=== PATIENT | female | born 1940 | race Caucasian/White ===

== ENCOUNTER 2017-08-24 07:53 | Inpatient (IN) ==
[2017-08-24] MEDS ORDERED: *HR* Metoprolol 5 MG/5 ML VIAL IVP PRN (12:33)
--- NOTE | 2017-08-24 12:33 | General Surg History&Physical ---
<Vikki Wadsworth - Last Filed: 08/24/17 12:27> Date of Encounter: 08/24/17 Time of Encounter: 10:45 Assessment and Plan (1) Small bowel obstruction Current Visit: No Status: Acute N/V, no BM/flatus x 3 days, and diffuse abdominal pain. Vitals have been within normal limits. WBC elevated to 38.3. Abdomen is soft, with mild tenderness and no distension. Lymphocytes 34.5 and smudge cells present on smear. Lactic acid 4.1. CT scan showed "moderate mid small bowel obstruction suspected to be due to adhesion. Fecal like material within the small bowel suggests at least a chronic partial obstruction". NG has been placed and patient is NPO. Plan: - NG tube to suction - Diet: NPO - serial abdominal exam - Can ambulate with assistance TID (2) Diabetes mellitus Current Visit: No Status: Acute D/c Metformin while NPO and placed on accu checks with low slide scale. Qualifiers: Diabetes mellitus type: type 2 Diabetes mellitus complication status: without complication Diabetes mellitus mcc insulin use: without terminal gauger use Qualified Code(s): E11.9 - Type 2 diabetes mellitus without complications (3) HTN (hypertension) Current Visit: No Status: Acute D/c home medications for now while NPO as they are PO. Will start Lopressor 5mg Q6 hr prn. Qualifiers: Hypertension type: essential hypertension Qualified Code(s): I10 - Essential (primary) hypertension (4) Left ovarian cyst Current Visit: No Status: Acute CT scan showed 8.2cm L ovarian cyst as an incidental finding. Will order the recommended US. (5) DVT prophylaxis Current Visit: No Status: Acute mechanical IPC. Also ambulation TID. History of Present Illness Chief complaint: N/v, no BM for 3 days, and abdominal pain HPI: Ms. Bello is a 77 year old female with a chief complaint of nausea, vomiting and no bowel movement for 3 days. Patient typically has a BM 1-2 times per day but has not had one for 3 days, nor has had any flatus. Stools prior to this had no change in color and has never seen any blood. Associated abdominal pain that is diffuse. Patient states that she has not been febrile. She has not been able to keep food down but has been hydrating well with no urinary complaints. Patient has not previously had this problem. She has never had a colonoscopy due to not wanting one. Pmh of diabetes non-insulin dependent, only on metformin. No diabetic neuropathy. Past surgical history of open cholecystectomy and hysterectomy in 1969 patient. Past Med Surg Social Fam HX - Past Medical History Medical history: arthritis, diabetes, hypertension, other Psychiatric history: no psych history - Past Surgical History Surgical History: cholecystectomy, hysterectomy - Social History Smoking Status: Never smoker Smokeless Tobacco Status: No Alcohol use: none Drug use: none - Family History Mother Living Status: Father Living Status: Medications and Allergies Acetaminophen [Tylenol Arthritis] 500 mg PO QID PRN 02/03/17 [History] Allopurinol [Zyloprim] 300 mg PO DAILY 02/03/17 [History] Atorvastatin [Lipitor] 10 mg PO HS 02/03/17 [History] [place] Cit/Mag/D3/Zn/Casing In Line Setter/Nikhil/Bor [Citracal-Vit D + Magnesium Tab] 1 each PO DAILY 02/03/17 [History] [place]-3/Dha/Epa/Fish Oil [Fish Oil 1,000 mg Softgel] 1,200 mg PO DAILY 02/03/17 [History] metFORMIN [Glucophage] 500 mg PO BIDWM 02/03/17 [History] Amlodipine Besylate/Benazepril [Lotrel 5-40 mg Capsule] 1 cap PO DAILY 08/24/17 [History] Aspirin [Lo-Dose Aspirin EC] 81 mg PO DAILY 08/24/17 [History] Vit A/C/E AC/Znox/Cupric Oxide [Eye Vitamin-Minerals Tablet] 1 each PO DAILY 06/03 [History] 3 Allergy/AdvReac Type Severity Reaction Status Date / Time No Known Allergies Allergy Verified 02/03/17 08:33 Review of Systems All systems PM: A 10-system review of systems was performed and is negative for pertinent findings except as documented above in the HPI. - Constitutional as per HPI General Surgery Exam Initial Vital Signs Temp Pulse Resp BP Pulse Ox 97.9 F 109 20 109/57 93 08/24/17 10:11 08/24/17 10:11 08/24/17 10:11 08/24/17 10:11 08/24/17 10:11 - Additional Findings Constitutional: Alert, in no acute distress, well nourished, well developed. Head: Normocephalic, atraumatic, normal contour and symmetric, no masses, lesions or scars Heart: Normal, regular rate and rhythm, no murmurs Lungs: Clear to auscultation, no wheezes, rales, or rhonchi Abdomen: mild diffuse tenderness, Soft, nondistended and no masses palpable, bowel sounds present but hypoactive, no guarding or rigidity. Extremities: No clubbing, cyanosis, or edema, radial pulse +2/4, capillary refill <2sec. Skin: Skin warm and dry, no lesions, no rashes, no jaundice Neurologic: Cranial nerves II through XII grossly intact, no focal deficits, strength within normal limits in all extremities Psych: Cooperative with exam, good eye contact, cognitive function intact, judgment good insight good, speech clear, thought process logical, and goal directed Results - Labs Abnormal lab results POC Glucose 156 (58-89) H 08/24/17 09:33 All other labs normal. - Imaging CT scan - abdomen: report reviewed, image reviewed <Darrion Ortiz - Last Filed: 08/24/17 13:09> Date of Encounter: 08/24/17 Assessment and Plan (1) Small bowel obstruction Current Visit: Yes Status: Acute The assessment and plan as outlined above was discussed with the patient and/or family members who expressed understanding and agreement. All questions were answered. (2) DVT prophylaxis Current Visit: Yes Status: Acute The assessment and plan as outlined above was discussed with the patient and/or family members who expressed understanding and agreement. All questions were answered. (3) Diabetes mellitus Current Visit: Yes Status: Acute The assessment and plan as outlined above was discussed with the patient and/or family members who expressed understanding and agreement. All questions were answered. Qualifiers: Diabetes mellitus type: type 2 Diabetes mellitus complication status: with other specified complication Diabetes mellitus mcc insulin use: without terminal gauger use Qualified Code(s): E11.69 - Type 2 diabetes mellitus with other specified complication (4) HTN (hypertension) Current Visit: Yes Status: Acute The assessment and plan as outlined above was discussed with the patient and/or family members who expressed understanding and agreement. All questions were answered. Qualifiers: Hypertension type: essential hypertension Qualified Code(s): I10 - Essential (primary) hypertension (5) Left ovarian cyst Current Visit: Yes Status: Acute The assessment and plan as outlined above was discussed with the patient and/or family members who expressed understanding and agreement. All questions were answered. History of Present Illness HPI: Ms. Bello is a 77 year old female Review of Systems All systems PM: A 10-system review of systems was performed and is negative for pertinent findings except as documented above in the HPI. General Surgery Exam Initial Vital Signs Temp Pulse Resp BP Pulse Ox 97.9 F 109 20 109/57 93 08/24/17 10:11 08/24/17 10:11 08/24/17 10:11 08/24/17 10:11 08/24/17 10:11 Results - Labs Abnormal lab results POC Glucose 156 (58-89) H 08/24/17 09:33 All other labs normal. - Attending Attestation I have personally seen and examined the patient. I have reviewed pertinent labs , imaging, progress notes, including this one. I agree with the above assessment and plan and wish to include the following... please see MD consult note.
[2017-08-24] MEDS ORDERED: D5% in Lactated Ringers 1,000 ML IVC ONE (12:41)
--- NOTE | 2017-08-24 12:51 | General Surg History&Physical ---
Date of Encounter: 08/24/17 Time of Encounter: 12:45 Assessment and Plan (1) Small bowel obstruction Current Visit: Yes Status: Acute 77F with h/o DM prior hysterectomy and open cholecystectomy who presents with small bowel obstruction confirmed on CT scan; non septic - NPO -IVF: bolus and maintenance - DVT prophylaxis: SQH in light of DACIA - NG tube: cont to LIWS - activity as tolerated - f/u 1800 labs, replete lytes PRN The assessment and plan as outlined above was discussed with the patient and/or family members who expressed understanding and agreement. All questions were answered. (2) DVT prophylaxis Current Visit: Yes Status: Acute SQH in light of DACIA; The assessment and plan as outlined above was discussed with the patient and/or family members who expressed understanding and agreement. All questions were answered. (3) Diabetes mellitus Current Visit: Yes Status: Acute ISS sliding scale for glucose control; monitor q6hrs The assessment and plan as outlined above was discussed with the patient and/or family members who expressed understanding and agreement. All questions were answered. Qualifiers: Diabetes mellitus type: type 2 Diabetes mellitus complication status: with other specified complication Diabetes mellitus half-way insulin use: without half-way use Qualified Code(s): E11.69 - Type 2 diabetes mellitus with other specified complication (4) HTN (hypertension) Current Visit: Yes Status: Acute lopressor 5mg iv q6; hold for SBP <100, HR <60; give for SBP >150 The assessment and plan as outlined above was discussed with the patient and/or family members who expressed understanding and agreement. All questions were answered. Qualifiers: Hypertension type: essential hypertension Qualified Code(s): I10 - Essential (primary) hypertension (5) Left ovarian cyst Current Visit: Yes Status: Acute US to evaluate; will obtain education and development manager consult pending results The assessment and plan as outlined above was discussed with the patient and/or family members who expressed understanding and agreement. All questions were answered. History of Present Illness Chief complaint: vomiting, constipation and obstipation HPI: Ms. Bello is a 77 year old female with a PMH significant for DM, uterine cancer s/p open hysterectomy and h/o open cholecystectomy who presents with 3 days of worsening abdominal distension, PO intolerance, nausea, vomiting and constipation and obstipation. This is the first time she has had symptoms like this. The patient has not been able to reliably eat for 3 days. No associated fevers, chills or abdominal pain. She presented to an outside facility where a CT was ordered. I have reviewed and interpreted the CT scan personally. It is consistent with a SBO with transition point likely in mid right abdomen. No evidence of ischemia. An NG tube was placed and bilious drainage was seen. She was subsequently transferred to [facility] for further management. Past Med Surg Social Fam HX - Past Medical History Medical history: arthritis, diabetes, hypertension, other Psychiatric history: no psych history - Past Surgical History Surgical History: cholecystectomy, hysterectomy - Social History Smoking Status: Never smoker Smokeless Tobacco Status: No Alcohol use: none Drug use: none - Family History Mother Living Status: Father Living Status: Medications and Allergies Acetaminophen [Tylenol Arthritis] 500 mg PO QID PRN 02/03/17 [History] Allopurinol [Zyloprim] 300 mg PO DAILY 02/03/17 [History] Atorvastatin [Lipitor] 10 mg PO HS 02/03/17 [History] [place] Cit/Mag/D3/Zn/Food And Beverage Cashier/Nikhil/Bor [Citracal-Vit D + Magnesium Tab] 1 each PO DAILY 02/03/17 [History] [place]-3/Dha/Epa/Fish Oil [Fish Oil 1,000 mg Softgel] 1,200 mg PO DAILY 02/03/17 [History] metFORMIN [Glucophage] 500 mg PO BIDWM 02/03/17 [History] Amlodipine Besylate/Benazepril [Lotrel 5-40 mg Capsule] 1 cap PO DAILY 08/24/17 [History] Aspirin [Lo-Dose Aspirin EC] 81 mg PO DAILY 08/24/17 [History] Vit A/C/E AC/Znox/Cupric Oxide [Eye Vitamin-Minerals Tablet] 1 each PO DAILY 06/03 [History] 3 Allergy/AdvReac Type Severity Reaction Status Date / Time No Known Allergies Allergy Verified 02/03/17 08:33 Review of Systems All systems PM: A 10-system review of systems was performed and is negative for pertinent findings except as documented above in the HPI. General Surgery Exam Initial Vital Signs Temp Pulse Resp BP Pulse Ox 97.9 F 109 20 109/57 93 08/24/17 10:11 08/24/17 10:11 08/24/17 10:11 08/24/17 10:11 08/24/17 10:11 - General physical appearance well developed, well nourished, no distress - Eyes other (no slceral icterus) - ENT atraumatic, normocephalic - Neck no lymphadectomy - Respiratory normal expansion, normal respiratory effort, clear to auscultation - Cardiovascular Cardiovascular exam: Present: RRR - Abdomen Abdomen general surgery: Present: soft, non tender, tympanic, distended Hernia: Present: none - Integumentary Integumentary general surgery: Present: warm and dry - Neurologic Present: CN 2-12 grossly intact - Musculoskeletal Present: other (no gross deformities) - Psychiatric Psychiatric general surgery: Present: A&Ox3 Results - Labs Abnormal lab results POC Glucose 156 (58-89) H 08/24/17 09:33 All other labs normal. pertinent labs: WBC; 38 Cr: 3.0 Lactate: 4.0 - Imaging CT scan - abdomen: report reviewed, image reviewed CT scan - pelvis: report reviewed, image reviewed ((+)obstruction, no ischemia; no abscess, no pneumatosis)
[2017-08-24] MEDS: *HR* Heparin 5,000 UNIT/ML VIAL SQ SCH ×2 (13:19→20:58)
[2017-08-24] MEDS: D5% in Lactated Ringers 1,000 ML IVC SCH (13:22)
[2017-08-24] MEDS ORDERED: D5% in Water 1,000 ML IVC PRN (15:31)
[2017-08-24] MEDS ORDERED: *HR* Dextrose 50 % in Water (Syg) 50 ML SYRINGE IVP PRN (15:31)
[2017-08-24] MEDS ORDERED: Dextrose Gel 15 GM PO PRN ×2 (15:31)
[2017-08-24] MEDS: Insulin LISPRO 300 UNITS/3 ML VIAL SQ SCH (18:06)
[2017-08-24 18:27] LABS: Basophils % 0.2 %; Eosinophils % 0.2 %; Hemoglobin 11.6 g/dL (11.5-15.4); Immature Granulocytes % 0.2 % (0-4); Lymphocytes # 15.1 K/mcL (0.6-4.6); Lymphocytes % 71.6 %; Mean Corpuscular HGB Conc 32.2 g/dL (31.6-35.5); Mean Corpuscular Hemoglobin 28.7 pg (28.0-33.3); Mean Corpuscular Volume 89.1 fL (83.0-100.0); Mean Platelet Volume 10.3 fL (9.4-12.4); Monocytes # 1.4 K/mcL (0.0-1.3); Monocytes % 6.6 %; Neutrophils # 4.5 K/mcL (1.6-8.9); Platelet Count 243 K/mcL (140-400); Red Blood Count 4.04 M/mcL (3.82-4.97); Red Cell Distribution Width 14.5 % (11.5-14.5); Segmented Neutrophils % 21.2 %
[2017-08-24 18:38] LABS: Calcium 10.2 mg/dL (8.6-10.8); Magnesium 1.3 mg/dL (1.6-2.6); Phosphorous 3.9 mg/dL (2.3-4.7); Potassium 3.8 mEq/L (3.5-4.5)
[2017-08-24 19:06] LABS: Platelet Estimate Normal (Normal)
[2017-08-24] MEDS: Magnesium Sulfate 2 GM in D5% in Water 100 ML IVPB SCH ×2 (20:57→22:11)
[2017-08-25] MEDS: Insulin LISPRO 300 UNITS/3 ML VIAL SQ SCH ×4 (00:14→17:52)
[2017-08-25] MEDS: D5% in Lactated Ringers 1,000 ML IVC SCH ×3 (00:14→22:08)
[2017-08-25 04:36] LABS: Basophils % 0.1 %; Eosinophils # 0.1 K/mcL (0.0-0.6); Eosinophils % 0.5 %; Hematocrit 34.5 % (35.3-44.9); Hemoglobin 11.2 g/dL (11.5-15.4); Immature Granulocytes % 0.2 % (0-4); Lymphocytes % 65.5 %; Mean Corpuscular HGB Conc 32.5 g/dL (31.6-35.5); Mean Corpuscular Hemoglobin 29.8 pg (28.0-33.3); Mean Corpuscular Volume 91.8 fL (83.0-100.0); Mean Platelet Volume 11.2 fL (9.4-12.4); Monocytes # 1.1 K/mcL (0.0-1.3); Monocytes % 7.1 %; Platelet Count 196 K/mcL (140-400); Red Blood Count 3.76 M/mcL (3.82-4.97); Red Cell Distribution Width 14.6 % (11.5-14.5); Segmented Neutrophils % 26.6 %
[2017-08-25 05:35] LABS: Large Platelets Present (Not Present); Platelet Estimate Normal (Normal)
[2017-08-25] MEDS: *HR* Heparin 5,000 UNIT/ML VIAL SQ SCH ×3 (05:43→22:08)
[2017-08-25 11:19] LABS: Calcium 10.1 mg/dL (8.6-10.8); Magnesium 1.9 mg/dL (1.6-2.6); Phosphorous 2.9 mg/dL (2.3-4.7); Potassium 3.7 mEq/L (3.5-4.5)
--- NOTE | 2017-08-25 11:55 | General Surgery Progress Note ---
Date of Encounter: 08/25/17 Time of Encounter: 11:55 - Assessment and Plan (1) Small bowel obstruction Current Visit: Yes Status: Inactive 77F with prior abdominal surgeries who presents with sbo likely due to adhesive disease; currently rehydrated and having return of bowel function; still with high NG output - NPO - IVF: decrease to 75cc/hr - encourage ambulation - still with NG output of about 100cc/hr as of this morning; will cont with NG tube - replete lytes - limit narcotics - no antibiotics at presents: despite leukocytosis, WBC decreased with rehydration, the patient is afebrile with a benign abdomen and no evidence of ischemia on CT (2) DVT prophylaxis Current Visit: Yes Status: Acute cont with SQH (3) Diabetes mellitus Current Visit: Yes Status: Acute change ISS to moderate scale; goal of 150s for glucose Qualifiers: Diabetes mellitus type: type 2 Diabetes mellitus complication status: with other specified complication Diabetes mellitus superintendent terminal insulin use: without superintendent terminal use Qualified Code(s): E11.69 - Type 2 diabetes mellitus with other specified complication (4) HTN (hypertension) Current Visit: Yes Status: Acute cont with lopressor with current parameters Qualifiers: Hypertension type: essential hypertension Qualified Code(s): I10 - Essential (primary) hypertension (5) Left ovarian cyst Current Visit: Yes Status: Acute US to evaluate ovarian cyst Subjective Patient reports: no new complaints, feels better (no acute events overnight; oxygen saturations dec to high 80s off oxygen), flatus, no bowel movement Objective Vital Signs - Last 8 Hours Temp Pulse Resp BP Pulse Ox 08/25/17 10:52 97.5 F L 98 18 111/65 93 08/25/17 07:30 97.9 F 102 16 120/64 93 08/25/17 04:17 97.3 F L 105 15 113/62 92 Intake and Output 08/24/17 08/25/17 08/25/17 23:59 07:59 15:59 Intake Total 1208 / 1208 0 / 0 1000 / 1000 Output Total 300 / 300 1100 / 1100 200 / 200 Balance 908 / 908 -1100 / -1100 800 / 800 Intake: IV Fluids 1208 / 1208 1000 / 1000 D5% & Lact. Ringers 1000 Ml Bag 1000 / 1000 1000 / 1000 1,000 ML @ 100 mls/hr IVC . Q10H MIKAL Rx#:[id number] Magnesium Sulfate 2 GM In 208 / 208 Dextrose 5% 100 ML @ 96.296 mls /hr IVPB Q1H MIKAL Rx#:[id number] Oral 0 / 0 0 / 0 Output: Urine 300 / 300 200 / 200 200 / 200 Gastric Drainage 900 / 900 Other: Meal npo Weight 83.9 kg Blood Glucose* 201 194 Patient Weight 08/25/17 23:59 Weight 83.9 kg - General physical appearance well developed, well nourished - Respiratory normal expansion, normal respiratory effort - Cardiovascular Cardiovascular exam: Present: RRR - Abdomen Abdomen: Present: soft (minimally distended, improved compared to yesterday), non tender Hernia: none - Neurologic CN 2-12 grossly intact - Psychiatric oriented to time - Labs 08/25/17 03:44 08/25/17 10:49 Diabetes panel 08/24/17 08/25/17 Range/Units 18:18 10:49 Sodium 140 143 (136-145) mEq/L Potassium 3.8 3.7 (3.5-4.5) mEq/L Chloride 101 100 (98-109) mEq/L Carbon Dioxide 28 32 H (19-29) mEq/L BUN 40 H 32 H (7-20) mg/dL Creatinine 1.83 H 1.34 H (0.57-1.11) mg/dL Glucose 166 H 171 H (70-99) mg/dL Calcium 10.2 10.1 (8.6-10.8) mg/dL Calcium panel 08/24/17 08/25/17 08/25/17 Range/Units 18:18 10:49 10:49 Calcium 10.2 10.1 (8.6-10.8) mg/dL Phosphorus 3.9 2.9 (2.3-4.7) mg/dL Pituitary panel 08/24/17 08/25/17 Range/Units 18:18 10:49 Sodium 140 143 (136-145) mEq/L Potassium 3.8 3.7 (3.5-4.5) mEq/L Chloride 101 100 (98-109) mEq/L Carbon Dioxide 28 32 H (19-29) mEq/L BUN 40 H 32 H (7-20) mg/dL Creatinine 1.83 H 1.34 H (0.57-1.11) mg/dL Glucose 166 H 171 H (70-99) mg/dL Calcium 10.2 10.1 (8.6-10.8) mg/dL Adrenal panel 08/24/17 08/25/17 Range/Units 18:18 10:49 Sodium 140 143 (136-145) mEq/L Potassium 3.8 3.7 (3.5-4.5) mEq/L Chloride 101 100 (98-109) mEq/L Carbon Dioxide 28 32 H (19-29) mEq/L BUN 40 H 32 H (7-20) mg/dL Creatinine 1.83 H 1.34 H (0.57-1.11) mg/dL Glucose 166 H 171 H (70-99) mg/dL Calcium 10.2 10.1 (8.6-10.8) mg/dL - Imaging Chest x-ray: report reviewed, image reviewed (no effusion; no cardiomegaly; NG tube in appropriate place) Abdominal x-ray: report reviewed, image reviewed - VTE Documentation of Mechanical Device: Intermittent pneumatic compression device Consult Discharge Plan - Plan Referrals: Jose Miguel Sanabria MD [Primary Care Provider] -
--- NOTE | 2017-08-25 16:35 | OB/GYN Consult Note ---
Date of Encounter: 08/25/17 Time of Encounter: 16:14 Assessment and Plan (1) Left ovarian cyst Current Visit: Yes Status: Acute 8.2cm Left ovarian cyst found incidentally on abd CT. Pelvic US confirms cystic nodule in left adnexa suspicious for cystic ovarian neoplasm given pt age until proven otherwise measuring 7.4 x 5.7 x 6.3 cm. Pt has history of cervical cancer with hysterectomy in 1968 and CLL. Patient denies any pelvic pain or symptoms prior to acute SBO symptoms. I discussed that there is the potential that this could be a malignancy. She states "Well I am 78, I don't want surgery." Patient not currently amendable to invasive testing. Discussed that she could see the LIABILITY CLAIMS MANAGER as an outpatient and discuss testing and options further once she is feeling better. She is agreeable to this. Recommendations: -Will get CA-125 with AM labs -Recommend outpatient referral to LIABILITY CLAIMS MANAGER for further discussion and evaluation Discussed patient and plan with attending, Dr. Arzate, who is agrees with plan and recommendations. (2) History of cervical cancer Current Visit: Yes Status: Chronic s/p hysterectomy in 1968. History of Present Illness Consult date: 08/25/17 Requesting physician: Darrion Ortiz Reason for consult: ovarian cyst Chief complaint: SBO History of present illness: Ms. Bello is a 77 year old female with a PMH of CLL, Cervical Cancer, DM, HTN , HLD and gout who presented to [facility] from [place] [facility] complaining of nausea, vomiting and no BM x3 days on 08/24/17. She had leukocytosis at 38.3, lymphyocytes 15.1 and a lactic acid of 4.1. An Abdominal CT was performed which indicated SBO and also incidentally found a 8.2cm simple appearing left ovarian cyst. A pelvic US was obtained showed a large cystic nodule in the left adnexa, suspicious for cystic ovarian neoplasm, given the patient's age, until proven otherwise and a normal right ovary. General surgery has been managing her SBO and consulted COMBATANT DIVER QUALIFIED regarding the left ovarian cyst as he is concerned for neoplasm. The patient states prior to her acute abdominal pain she was not experiencing abdominal or pelvic pain. She does have a history of cervical cancer and had a hysterectomy in 1968. She denies history of breast cancer. She denies a family history of breast, cervical or ovarian cancer that she knows of. Her mother did have colon cancer and her sister had a cancer, but she can not remember which type. She denies F/C, CP, SOB, dysuria. Past Med Surg Social Fam HX - Past Medical History Medical history: arthritis, cancer (cervical, CLL), diabetes, hypertension, other Psychiatric history: no psych history - Past Surgical History Surgical History: cholecystectomy, hysterectomy (1968) - Social History Smoking Status: Never smoker Smokeless Tobacco Status: No Alcohol use: none Drug use: none - Family History Mother Living Status: Hx Family Cancer: Yes (colon cancer) Father Living Status: Medications and Allergies Acetaminophen [Tylenol Arthritis] 500 mg PO QID PRN 02/03/17 [History] Allopurinol [Zyloprim] 300 mg PO DAILY 02/03/17 [History] Atorvastatin [Lipitor] 10 mg PO HS 02/03/17 [History] [place] Cit/Mag/D3/Zn/Manager Clinical Informatics/Nikhil/Bor [Citracal-Vit D + Magnesium Tab] 1 each PO DAILY 02/03/17 [History] [place]-3/Dha/Epa/Fish Oil [Fish Oil 1,000 mg Softgel] 1,200 mg PO DAILY 02/03/17 [History] metFORMIN [Glucophage] 500 mg PO BIDWM 02/03/17 [History] Amlodipine Besylate/Benazepril [Lotrel 5-40 mg Capsule] 1 cap PO DAILY 08/24/17 [History] Aspirin [Lo-Dose Aspirin EC] 81 mg PO DAILY 08/24/17 [History] Vit A/C/E AC/Znox/Cupric Oxide [Eye Vitamin-Minerals Tablet] 1 each PO DAILY 06/03 [History] 3 Allergy/AdvReac Type Severity Reaction Status Date / Time No Known Allergies Allergy Verified 02/03/17 08:33 Review of Systems Constitutional: no chills, no fatigue, no fever(s), no malaise, no weight loss Nose, mouth and throat: no dizziness Cardiovascular: no chest pain, no irregular heart rhythm Respiratory: no dyspnea Gastrointestinal: abdominal pain, bloating, change in bowel habits, coffee ground emesis, constipation, nausea Genitourinary Female: no abnormal vaginal bleeding, no dysuria, no flank pain, no pelvic pain Menstruation: post hysterectomy Exam - Vital Signs Vital signs: Initial Vital Signs Temp Pulse Resp BP Pulse Ox 97.9 F 109 20 109/57 93 08/24/17 10:11 08/24/17 10:11 08/24/17 10:11 08/24/17 10:11 08/24/17 10:11 - Constitutional Constitutional: well developed, well nourished, mild distress, obese - HEENT HEENT: EOMI, PERRL, Normocephaly, Mucus Membranes Moist, Other (NG tube in place with large volume brown ouput) - Neck Neck exam: normal inspection, supple, trachea midline - Lungs Respiratory exam: CTAB - Cardiovascular Cardiovascular exam: RRR, +S1, +S2 - Abdomen Abdomen: Present: bowel sounds normal, diffuse tenderness. Absent: mass - Extremities Extremities exam: normal capillary refill, normal inspection, radial pulses palpable and symmetrical - Uterus Uterus exam: Present: absent - Adnexa Adnexa: bilateral: normal (no masses appreciated), tenderness Results Result Diagrams: 08/25/17 03:44 08/25/17 10:49 Abnormal lab results WBC 15.2 K/mcL (4.3-11.1) H 08/25/17 03:44 RBC 3.76 M/mcL (3.82-4.97) L 08/25/17 03:44 Hgb 11.2 g/dL (11.5-15.4) L 08/25/17 03:44 Hct 34.5 % (35.3-44.9) L 08/25/17 03:44 RDW 14.6 % (11.5-14.5) H 08/25/17 03:44 Lymphocytes # 10.0 K/mcL (0.6-4.6) H 08/25/17 03:44 Large Platelets Present (Not Present) A 08/25/17 03:44 Carbon Dioxide 32 mEq/L (19-29) H 08/25/17 10:49 BUN 32 mg/dL (7-20) H 08/25/17 10:49 Creatinine 1.34 mg/dL (0.57-1.11) H 08/25/17 10:49 Est GFR ( Amer) 46 (> 60) L 08/25/17 10:49 Est GFR (Non-Af Amer) 38 (> 60) L 08/25/17 10:49 Glucose 171 mg/dL (70-99) H 08/25/17 10:49 POC Glucose 194 (58-89) H 08/25/17 05:29 Calculated Osmolality 307 (280-300) H 08/25/17 10:[address] All other labs normal. CT scan - abdomen: report reviewed, image reviewed US - abdomen: report reviewed, image reviewed Consult Discharge Plan - Plan Referrals: Jose Miguel Sanabria MD [Primary Care Provider] - - Attending Attestation I examined this patient and my medical decision-making was reviewed with the Resident Physician. I agree with the documented findings, disposition and treatment plan as described except to the extent set forth below.
[2017-08-26] MEDS: Insulin LISPRO 300 UNITS/3 ML VIAL SQ SCH ×5 (01:00→23:52)
[2017-08-26 04:59] LABS: Basophils % 0.2 %; Eosinophils # 0.1 K/mcL (0.0-0.6); Eosinophils % 0.9 %; Hemoglobin 10.3 g/dL (11.5-15.4); Immature Granulocytes % 0.3 % (0-4); Lymphocytes # 7.1 K/mcL (0.6-4.6); Lymphocytes % 60.4 %; Mean Corpuscular HGB Conc 31.2 g/dL (31.6-35.5); Mean Corpuscular Hemoglobin 29.2 pg (28.0-33.3); Mean Corpuscular Volume 93.5 fL (83.0-100.0); Mean Platelet Volume 10.9 fL (9.4-12.4); Monocytes # 1.1 K/mcL (0.0-1.3); Monocytes % 9.4 %; Neutrophils # 3.4 K/mcL (1.6-8.9); Platelet Count 165 K/mcL (140-400); Red Blood Count 3.53 M/mcL (3.82-4.97); Red Cell Distribution Width 14.4 % (11.5-14.5); Segmented Neutrophils % 28.8 %
[2017-08-26 05:12] LABS: BUN/Creatinine Ratio 25 (6-26); Blood Urea Nitrogen 26 mg/dL (7-20); Calcium 9.7 mg/dL (8.6-10.8); Carbon Dioxide 33 mEq/L (19-29); Chloride 101 mEq/L (98-109); Glucose 136 mg/dL (70-99); Magnesium 1.6 mg/dL (1.6-2.6); Osmolality,Calculated 305 (280-300); Phosphorous 2.2 mg/dL (2.3-4.7); Potassium 3.5 mEq/L (3.5-4.5); Sodium 144 mEq/L (136-145); eGFR For African Americans > 60 (> 60); eGFR For Non-African Americans 52 (> 60)
[2017-08-26] MEDS: *HR* Heparin 5,000 UNIT/ML VIAL SQ SCH ×3 (05:57→22:01)
[2017-08-26] MEDS ORDERED: Magnesium Sulfate 4 GM in D5% in Water 100 ML IVPB ONE (09:46)
--- NOTE | 2017-08-26 10:30 | General Surgery Progress Note ---
<Vikki Wadsworth - Last Filed: 08/26/17 13:53> Date of Encounter: 08/26/17 Time of Encounter: 10:28 - Assessment and Plan (1) Small bowel obstruction Current Visit: Yes Status: Inactive N/V, no BM/flatus x 3 days, and diffuse abdominal pain. Vitals have been within normal limits. WBC elevated to 38.3 on initial evaluation. Abdomen is soft, with mild tenderness and no distension. Admission labs also showed Lymphocytes 34.5 and smudge cells present on smear, Lactic acid 4.1. CT scan showed "m oderate mid small bowel obstruction suspected to be due to adhesion. Fecal like material within the small bowel suggests at least a chronic partial obstruction". NG has been placed and patient is NPO. + Flatus. NG output 600ml last shift. WBC continue to improve 11.7 (15.2). DACIA resolved. Will clamp NG for 4 hours. At 1700 today, check residuals. If 300 ml or less, d/c NG and give clear liquid diet. IF greater than 300 ml, return to LIWS and remain NPO. Plan: - NG tube clamped for 4 hrs, recheck > 300ml return to LIWS and remain NPO, if less than 300ml d/c NG and advance to clears - Diet: NPO currently but can switch to clears if after 4 hrs residual is less than 300ml - Necessary to ambulate with assistance TID, NG to clamp for ambulation - IV fluids 75ml/hr - no antibiotics at presents: despite leukocytosis, WBC decreased with rehydration, the patient is afebrile with a benign abdomen and no evidence of ischemia on CT - replace magnesium and phos today, repeat labs tomorrow. - (2) Electrolyte abnormality Current Visit: Yes Status: Acute Mg= 1.6, Phos= 2.2. Patient give Mg Sulf 4gm IV and KPhos 22meq IV. Will repeat labs tomorrow. (3) Left ovarian cyst Current Visit: Yes Status: Acute US showed a cystic nodule is seen in the left adnexae measuring 7.4 x 5.7 x 6.3 cm suspicious for cystic ovarian neoplasm, given the patient's age, until proven otherwise. OBGYN consulted. Ca-125= 35. Patient denies desiring any invasive treatment at this time but agrees to f/u with PHYSICAL MEDICINE SPECIALIST outpatient for further discussion and evaluation. (4) HTN (hypertension) Current Visit: Yes Status: Acute cont with lopressor with current parameters Qualifiers: Hypertension type: essential hypertension Qualified Code(s): I10 - Essential (primary) hypertension (5) Diabetes mellitus Current Visit: Yes Status: Acute ISS to moderate scale; goal of 150s for glucose. Glucose now between 160-129. Qualifiers: Diabetes mellitus type: type 2 Diabetes mellitus complication status: with other specified complication Diabetes mellitus director long term care insulin use: without director long term care use Qualified Code(s): E11.69 - Type 2 diabetes mellitus with other specified complication (6) DVT prophylaxis Current Visit: Yes Status: Acute SQ heparin continue Subjective Narrative: Ms. Bello is a 77 year old female with a chief complaint of nausea, vomiting and no bowel movement for 3 days found to have a small bowel obstruction. Today patient states that she has not had a bowel movement but she is still having flatus. She thought she had to have a bowel movement this morning but ended up not being able to go. Patient denies nausea vomiting or abdominal pain. Patient is starting to get hungry. Denies SOB. Objective Vital Signs - Last 8 Hours Temp Pulse Resp BP Pulse Ox 08/26/17 06:44 97.9 F 75 16 122/57 92 08/26/17 04:32 97.9 F 85 16 126/54 92 Intake and Output 08/25/17 08/26/17 08/26/17 23:59 07:59 15:59 Intake Total 0 / 0 869 / 869 Output Total 0 / 0 800 / 800 Balance 0 / 0 -800 / -800 869 / 869 Intake: IV Fluids 869 / 869 D5% & Lact. Ringers 1000 Ml Bag 869 / 869 1,000 ML @ 75 mls/hr IVC . [id number] [facility] Rx#:[id number] Oral 0 / 0 Output: Urine 0 / 0 200 / 200 Gastric Drainage 600 / 600 Other: # Voids 1 Weight 82.5 kg Blood Glucose* 129 138 Patient Weight 08/26/17 23:59 Weight 82.5 kg - Additional Exam Constitutional: Alert, in no acute distress, well nourished, well developed. Head: Normocephalic, atraumatic, normal contour and symmetric, no masses, lesions or scars Heart: Normal, regular rate and rhythm, no murmurs Lungs: Clear to auscultation, no wheezes, rales, or rhonchi Abdomen: Soft, nondistended, nontender, and no masses palpable, bowel sounds present and normal, no guarding or rigidity. Extremities: No clubbing, cyanosis, or edema, radial pulse +2/4, capillary refill <2sec. Skin: Skin warm and dry, no lesions, no rashes, no jaundice Neurologic: Cranial nerves II through XII grossly intact, no focal deficits, strength within normal limits in all extremities Psych: Cooperative with exam, good eye contact, cognitive function intact, judgment good insight good, speech clear, thought process logical, and goal directed - Labs 08/26/17 04:37 08/26/17 04:37 Diabetes panel 08/25/17 08/26/17 Range/Units 10:49 04:37 Sodium 143 144 (136-145) mEq/L Potassium 3.7 3.5 (3.5-4.5) mEq/L Chloride 100 101 (98-109) mEq/L Carbon Dioxide 32 H 33 H (19-29) mEq/L BUN 32 H 26 H (7-20) mg/dL Creatinine 1.34 H 1.03 (0.57-1.11) mg/dL Glucose 171 H 136 H (70-99) mg/dL Calcium 10.1 9.7 (8.6-10.8) mg/dL Calcium panel 08/25/17 08/25/17 08/26/17 Range/Units 10:49 10:49 04:37 Calcium 10.1 9.7 (8.6-10.8) mg/dL Phosphorus 2.9 2.2 L (2.3-4.7) mg/dL Pituitary panel 08/25/17 08/26/17 Range/Units 10:49 04:37 Sodium 143 144 (136-145) mEq/L Potassium 3.7 3.5 (3.5-4.5) mEq/L Chloride 100 101 (98-109) mEq/L Carbon Dioxide 32 H 33 H (19-29) mEq/L BUN 32 H 26 H (7-20) mg/dL Creatinine 1.34 H 1.03 (0.57-1.11) mg/dL Glucose 171 H 136 H (70-99) mg/dL Calcium 10.1 9.7 (8.6-10.8) mg/dL Adrenal panel 08/25/17 08/26/17 Range/Units 10:49 04:37 Sodium 143 144 (136-145) mEq/L Potassium 3.7 3.5 (3.5-4.5) mEq/L Chloride 100 101 (98-109) mEq/L Carbon Dioxide 32 H 33 H (19-29) mEq/L BUN 32 H 26 H (7-20) mg/dL Creatinine 1.34 H 1.03 (0.57-1.11) mg/dL Glucose 171 H 136 H (70-99) mg/dL Calcium 10.1 9.7 (8.6-10.8) mg/dL - VTE Documentation of Mechanical Device: Intermittent pneumatic compression device Consult Discharge Plan - Plan Referrals: Jose Miguel Sanabria MD [Primary Care Provider] - Jack Arzate MD [Partnered Physician] - <Darrion Ortiz - Last Filed: 08/27/17 08:02> Date of Encounter: 08/27/17 - Assessment and Plan (1) Small bowel obstruction Current Visit: Yes Status: Inactive (2) DVT prophylaxis Current Visit: Yes Status: Acute (3) Diabetes mellitus Current Visit: Yes Status: Acute Qualifiers: Diabetes mellitus type: type 2 Diabetes mellitus complication status: with other specified complication Diabetes mellitus director long term care insulin use: without director long term care use Qualified Code(s): E11.69 - Type 2 diabetes mellitus with other specified complication (4) HTN (hypertension) Current Visit: Yes Status: Acute Qualifiers: Hypertension type: essential hypertension Qualified Code(s): I10 - Essential (primary) hypertension (5) Left ovarian cyst Current Visit: Yes Status: Acute Objective Vital Signs - Last 8 Hours Temp Pulse Resp BP Pulse Ox 08/27/17 07:31 98.0 F 76 13 118/54 94 08/27/17 03:04 98.4 F 79 14 129/68 97 Intake and Output 08/26/17 08/26/17 08/27/17 15:59 23:59 07:59 Intake Total 2076 1486 / 1486 0 / 0 Output Total 800 / 800 1800 / 1800 900 / 900 Balance 1277 / 1277 -314 / -314 -900 / -900 Intake: IV Fluids 2076 646 / 646 D5% & Lact. Ringers 1000 Ml Bag 1868 / 1868 391 / 391 1,000 ML @ 75 mls/hr IVC . [id number] [facility] Rx#:[id number] Magnesium Sulfate 2 GM In 208 / 208 Dextrose 5% 100 ML @ 100 mls/hr IVPB Q1H [facility] Rx#:[id number] Potassium Phosphate 22 MEQ In 0 255 / 255 .9 % Sodium Chloride 250 ML @ 40 mls/hr IVPB ONCE ONE Rx#: [id number] Oral 0 / 0 840 / 840 0 / 0 Output: Urine 300 / 300 250 / 250 300 / 300 Emesis 1500 / 1500 600 / 600 Gastric Drainage 500 / 500 50 / 50 Other: Meal NPO Percent of Meal Consumed 0% Weight 81.284 kg Blood Glucose* 186 191 158 Patient Weight 08/27/17 23:59 Weight 81.284 kg - Labs 08/26/17 04:37 08/27/17 06:28 Diabetes panel 08/27/17 Range/Units 06:28 Sodium 145 (136-145) mEq/L Potassium 3.2 L (3.5-4.5) mEq/L Chloride 94 L (98-109) mEq/L Carbon Dioxide 40 H* (19-29) mEq/L BUN 24 H (7-20) mg/dL Creatinine 1.24 H (0.57-1.11) mg/dL Glucose 179 H (70-99) mg/dL Calcium 10.2 (8.6-10.8) mg/dL Calcium panel 08/27/17 Range/Units 06:28 Calcium 10.2 (8.6-10.8) mg/dL Phosphorus 3.0 (2.3-4.7) mg/dL Pituitary panel 08/27/17 Range/Units 06:28 Sodium 145 (136-145) mEq/L Potassium 3.2 L (3.5-4.5) mEq/L Chloride 94 L (98-109) mEq/L Carbon Dioxide 40 H* (19-29) mEq/L BUN 24 H (7-20) mg/dL Creatinine 1.24 H (0.57-1.11) mg/dL Glucose 179 H (70-99) mg/dL Calcium 10.2 (8.6-10.8) mg/dL Adrenal panel 08/27/17 Range/Units 06:28 Sodium 145 (136-145) mEq/L Potassium 3.2 L (3.5-4.5) mEq/L Chloride 94 L (98-109) mEq/L Carbon Dioxide 40 H* (19-29) mEq/L BUN 24 H (7-20) mg/dL Creatinine 1.24 H (0.57-1.11) mg/dL Glucose 179 H (70-99) mg/dL Calcium 10.2 (8.6-10.8) mg/dL - Attending Attestation I have personally seen and examined the patient. I have reviewed pertinent labs , imaging, progress notes, including this one. I agree with the above assessment and plan and wish to include the following... 77F with small bowel obstruction likely due to adhesive disease. Patient is afebrile, soft, minimally distended abdomen, and non peritoneal; NG output was still high and bilious, but the patient was having signs of bowel function ( flatus). Although her NG out was high, her exam and report of flatus are promising. will plan to clamp the NG tube for 4 hours to mimic what it would be like for her to not have an NG; if residuals after 4 hours are 300 or less, then can pull the NG tube and begin CLD. Otherwise will continue with NG tube; replete lytes, and encourage ambulation
[2017-08-26] MEDS: Magnesium Sulfate 2 GM in D5% in Water 100 ML IVPB SCH ×2 (11:36→12:53)
[2017-08-26] MEDS: D5% in Lactated Ringers 1,000 ML IVC SCH (18:30)
[2017-08-26] MEDS: Ondansetron 4 MG/2 ML VIAL IVP PRN (20:38)
[2017-08-27] MEDS: Ondansetron 4 MG/2 ML VIAL IVP PRN (05:34)
[2017-08-27] MEDS: *HR* Heparin 5,000 UNIT/ML VIAL SQ SCH ×3 (05:34→22:35)
[2017-08-27] MEDS: Insulin LISPRO 300 UNITS/3 ML VIAL SQ SCH ×4 (05:45→23:36)
[2017-08-27 07:31] LABS: Basophils % 0.3 %; Eosinophils # 0.1 K/mcL (0.0-0.6); Eosinophils % 0.4 %; Hematocrit 36.6 % (35.3-44.9); Hemoglobin 11.4 g/dL (11.5-15.4); Immature Granulocytes % 0.7 % (0-4); Lymphocytes % 54.7 %; Mean Corpuscular HGB Conc 31.1 g/dL (31.6-35.5); Mean Corpuscular Hemoglobin 29.3 pg (28.0-33.3); Mean Corpuscular Volume 94.1 fL (83.0-100.0); Mean Platelet Volume 11.4 fL (9.4-12.4); Monocytes # 1.2 K/mcL (0.0-1.3); Monocytes % 8.2 %; Neutrophils # 5.3 K/mcL (1.6-8.9); Platelet Count 219 K/mcL (140-400); Red Blood Count 3.89 M/mcL (3.82-4.97); Red Cell Distribution Width 14.4 % (11.5-14.5); Segmented Neutrophils % 35.7 %
[2017-08-27 07:39] LABS: Calcium 10.2 mg/dL (8.6-10.8); Magnesium 2.2 mg/dL (1.6-2.6); Potassium 3.2 mEq/L (3.5-4.5)
[2017-08-27] MEDS: D5% in Lactated Ringers 1,000 ML IVC SCH (08:16)
[2017-08-27] MEDS ORDERED: D5% in 0.45% NACL w KCl 20 MEQ/1,000 ML MLS IVC SCH ×2 (08:30→12:00)
[2017-08-27 09:30] LABS: Platelet Estimate Normal (Normal); Reactive Lymphocytes Present (Not Present)
[2017-08-27] MEDS ORDERED: 0.9 % Sodium Chloride 1,000 ML IVC ONE (10:49)
[2017-08-27] MEDS ORDERED: Potassium Chloride 40 MEQ, Lidocaine 1% 2 ML in D5% in Water 500 ML IVPB ONE (11:27)
--- NOTE | 2017-08-27 11:36 | General Surgery Progress Note ---
<Ashley Seymour - Last Filed: 08/27/17 11:46> Date of Encounter: 08/27/17 Time of Encounter: 11:35 - Assessment and Plan (1) Small bowel obstruction Current Visit: Yes Status: Acute Patient states are abdominal discomfort is improving. Her bowel sounds are active. Episode of vomiting overnight. NG was deseeded on 08/26/2017. -Clear liquid diet, patient is aware that she found its again in she will be replaced. -Will add Reglan and miralax -Milk of molasses enema per patient request for feeling of constipation in the lower rectum -Ambulate as tolerated -Continue PPI prophylaxis -No clear source for increased WBC. Will continue to monitor. Repeat am labs -Replace electrolytes prn (2) Ovarian mass Current Visit: Yes Status: Acute Per lead performance support analyst notes: 8.2cm Left ovarian cyst found incidentally on abd CT. Pelvic US confirms cystic nodule in left adnexa suspicious for cystic ovarian neoplasm given pt age until proven otherwise measuring 7.4 x 5.7 x 6.3 cm. Pt has history of cervical cancer with hysterectomy in 1968 and CLL. Patient denies any pelvic pain or symptoms prior to acute SBO symptoms. Discussed that there is the potential that this could be a malignancy. She states "Well I am 78, I don't want surgery." Patient not currently amendable to invasive testing. Discussed that she could see the DIRECTOR CLINICAL PHARMACOLOGY as an outpatient and discuss testing and options further once she is feeling better. She is agreeable to this. Recommendations: -Will get CA-125 with AM labs -Recommend outpatient referral to DIRECTOR CLINICAL PHARMACOLOGY for further discussion and evaluation Discussed patient and plan with attending, Dr. Arzate, who is agrees with plan and recommendations. (3) DVT prophylaxis Current Visit: Yes Status: Acute EPCDs while in bed Heparin SQ BID Ambulate at least TID (4) Hypokalemia Current Visit: Yes Status: Acute See above Subjective Patient reports: feels better, still having pain, pain is less, voiding w/o difficulty, no flatus, no bowel movement, nausea, afebrile Narrative: Shirin states she is feeling somewhat better today. She does endorse episodes of vomiting last night but states that she has only been sipping on water today and she does not feel the need to vomit. She does states she is burping and is not having vomitus with the burping sensations. She reports feeling the need to have a bowel movement but is unable to do so. She states she has not had a bowel movement for over a week. Denies fever, chills, shortness of breath, or worsening abdominal discomfort. Objective Vital Signs - Last 8 Hours Temp Pulse Resp BP Pulse Ox 08/27/17 10:52 97.7 F 72 12 126/62 92 08/27/17 07:31 98.0 F 76 13 118/54 94 Intake and Output 08/26/17 08/27/17 08/27/17 23:59 07:59 15:59 Intake Total 1486 / 1486 609 / 609 146 / 146 Output Total 1800 / 1800 900 / 900 Balance -314 / -314 -291 / -291 146 / 146 Intake: IV Fluids 646 / 646 609 / 609 146 / 146 D5% & Lact. Ringers 1000 Ml Bag 391 / 391 609 / 609 146 / 146 1,000 ML @ 75 mls/hr IVC . [id number] [facility] Rx#:[id number] Potassium Phosphate 22 MEQ In 0 255 / 255 .9 % Sodium Chloride 250 ML @ 40 mls/hr IVPB ONCE ONE Rx#: [id number] Oral 840 / 840 0 / 0 Output: Urine 250 / 250 300 / 300 Emesis 1500 / 1500 600 / 600 Gastric Drainage 50 / 50 Other: Meal NPO Percent of Meal Consumed 0% Weight 81.284 kg Blood Glucose* 191 158 Patient Weight 08/27/17 23:59 Weight 81.284 kg - General physical appearance well developed, well nourished, no distress, no pain - Eyes normal ocular movement - ENT atraumatic, normocephalic - Neck Neck exam: trachea midline, no venous distension - Respiratory normal expansion, normal respiratory effort, clear to auscultation - Cardiovascular Cardiovascular exam: Present: distant heart sounds - Abdomen Abdomen: Present: bowel sounds present, soft, distended Hernia: none - Integumentary no rash - Neurologic CN 2-12 grossly intact, normal coordination, normal sensation - Musculoskeletal normal gait, normal posture - Psychiatric oriented to time, oriented to person, oriented to place, speech is normal, memory intact - Labs 08/27/17 06:28 08/27/17 06:28 Diabetes panel 08/27/17 Range/Units 06:28 Sodium 145 (136-145) mEq/L Potassium 3.2 L (3.5-4.5) mEq/L Chloride 94 L (98-109) mEq/L Carbon Dioxide 40 H* (19-29) mEq/L BUN 24 H (7-20) mg/dL Creatinine 1.24 H (0.57-1.11) mg/dL Glucose 179 H (70-99) mg/dL Calcium 10.2 (8.6-10.8) mg/dL Calcium panel 08/27/17 Range/Units 06:28 Calcium 10.2 (8.6-10.8) mg/dL Phosphorus 3.0 (2.3-4.7) mg/dL Pituitary panel 08/27/17 Range/Units 06:28 Sodium 145 (136-145) mEq/L Potassium 3.2 L (3.5-4.5) mEq/L Chloride 94 L (98-109) mEq/L Carbon Dioxide 40 H* (19-29) mEq/L BUN 24 H (7-20) mg/dL Creatinine 1.24 H (0.57-1.11) mg/dL Glucose 179 H (70-99) mg/dL Calcium 10.2 (8.6-10.8) mg/dL Adrenal panel 08/27/17 Range/Units 06:28 Sodium 145 (136-145) mEq/L Potassium 3.2 L (3.5-4.5) mEq/L Chloride 94 L (98-109) mEq/L Carbon Dioxide 40 H* (19-29) mEq/L BUN 24 H (7-20) mg/dL Creatinine 1.24 H (0.57-1.11) mg/dL Glucose 179 H (70-99) mg/dL Calcium 10.2 (8.6-10.8) mg/dL - VTE Documentation of Mechanical Device: Graduated compression elastic hosiery Consult Discharge Plan - Plan Referrals: Jose Miguel Sanabria MD [Primary Care Provider] - Jack Arzate MD [Partnered Physician] - <Darrion Ortiz - Last Filed: 08/27/17 15:12> Date of Encounter: 08/27/17 - Assessment and Plan (1) Small bowel obstruction Current Visit: Yes Status: Inactive (2) DVT prophylaxis Current Visit: Yes Status: Acute (3) Diabetes mellitus Current Visit: Yes Status: Acute Qualifiers: Diabetes mellitus type: type 2 Diabetes mellitus complication status: with other specified complication 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 truck 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 insulin use: without correction use Qualified Code(s): E11.69 - Type 2 diabetes mellitus with other specified complication (4) HTN (hypertension) Current Visit: Yes Status: Acute Qualifiers: Hypertension type: essential hypertension Qualified Code(s): I10 - Essential (primary) hypertension (5) Left ovarian cyst Current Visit: Yes Status: Acute Objective Vital Signs - Last 8 Hours Temp Pulse Resp BP Pulse Ox 08/27/17 10:52 97.7 F 72 12 126/62 92 08/27/17 07:31 98.0 F 76 13 118/54 94 Intake and Output 08/26/17 08/27/17 08/27/17 23:59 07:59 15:59 Intake Total 1486 / 1486 609 / 609 1506 / 1506 Output Total 1800 / 1800 900 / 900 600 / 600 Balance -314 / -314 -291 / -291 906 / 906 Intake: IV Fluids 646 / 646 609 / 609 1146 / 1146 0.9 % Sodium Chloride 1,000 ML 1000 / 1000 @ 3750 mls/hr IVC .Q16M [facility] Rx# :[id number] D5% & Lact. Ringers 1000 Ml Bag 391 / 391 609 / 609 146 / 146 1,000 ML @ 75 mls/hr IVC . [id number] [facility] Rx#:[id number] Potassium Phosphate 22 MEQ In 0 255 / 255 .9 % Sodium Chloride 250 ML @ 40 mls/hr IVPB ONCE [facility] Rx#: [id number] Oral 840 / 840 0 / 0 360 / 360 Output: Urine 250 / 250 300 / 300 100 / 100 Emesis 1500 / 1500 600 / 600 500 / 500 Gastric Drainage 50 / 50 Other: Meal Clears Percent of Meal Consumed 0% Weight 81.284 kg Blood Glucose* 191 158 172 Patient Weight 08/27/17 23:59 Weight 81.284 kg - Labs 08/27/17 06:28 08/27/17 06:28 Diabetes panel 08/27/17 Range/Units 06:28 Sodium 145 (136-145) mEq/L Potassium 3.2 L (3.5-4.5) mEq/L Chloride 94 L (98-109) mEq/L Carbon Dioxide 40 H* (19-29) mEq/L BUN 24 H (7-20) mg/dL Creatinine 1.24 H (0.57-1.11) mg/dL Glucose 179 H (70-99) mg/dL Calcium 10.2 (8.6-10.8) mg/dL Calcium panel 08/27/17 Range/Units 06:28 Calcium 10.2 (8.6-10.8) mg/dL Phosphorus 3.0 (2.3-4.7) mg/dL Pituitary panel 08/27/17 Range/Units 06:28 Sodium 145 (136-145) mEq/L Potassium 3.2 L (3.5-4.5) mEq/L Chloride 94 L (98-109) mEq/L Carbon Dioxide 40 H* (19-29) mEq/L BUN 24 H (7-20) mg/dL Creatinine 1.24 H (0.57-1.11) mg/dL Glucose 179 H (70-99) mg/dL Calcium 10.2 (8.6-10.8) mg/dL Adrenal panel 08/27/17 Range/Units 06:28 Sodium 145 (136-145) mEq/L Potassium 3.2 L (3.5-4.5) mEq/L Chloride 94 L (98-109) mEq/L Carbon Dioxide 40 H* (19-29) mEq/L BUN 24 H (7-20) mg/dL Creatinine 1.24 H (0.57-1.11) mg/dL Glucose 179 H (70-99) mg/dL Calcium 10.2 (8.6-10.8) mg/dL - Attending Attestation I have personally seen and examined the patient. I have reviewed pertinent labs , imaging, progress notes, including this one. I agree with the above assessment and plan and wish to include the following...\\ 77F with sbo with flatus; trialed on CLD which resulted in vomiting ~ 1.5L; she felt better and continued to have bowel function; abdomen is soft, non peritoneal, minimally distended; her labs were consistent with a contraction alkalosis likely from her multiple vomiting episodes and poor PO intake. She is still unable to tolerate a liquid diet; will make patient npo, reinsert an NG tube and discuss with the patient regarding surgery for relief of her obstruction.
[2017-08-27] MEDS ORDERED: Ondansetron 4 MG/2 ML VIAL IVP STA (11:37)
[2017-08-27] MEDS ORDERED: Milk and Molasses Enema 200 ML RC SCH (11:45)
[2017-08-27] MEDS: Metoclopramide 10 MG/2 ML VIAL IVP SCH ×3 (12:13→23:30)
[2017-08-27] MEDS ORDERED: Ondansetron 4 MG/2 ML VIAL IVP PRN (15:05)
[2017-08-27] MEDS: 0.9 % Sodium Chloride 1,000 ML IVC SCH (17:25)
[2017-08-27] MEDS ORDERED: Chloraseptic Spray 177 ML BOTTLE MM PRN (18:40)
[2017-08-27] MEDS: Milk and Molasses Enema 200 ML RC SCH (23:30)
[2017-08-28] MEDS: 0.9 % Sodium Chloride 1,000 ML IVC SCH ×2 (03:38→18:23)
[2017-08-28] MEDS: Insulin LISPRO 300 UNITS/3 ML VIAL SQ SCH ×3 (06:05→17:29)
[2017-08-28] MEDS: Metoclopramide 10 MG/2 ML VIAL IVP SCH ×3 (06:05→16:46)
[2017-08-28] MEDS: *HR* Heparin 5,000 UNIT/ML VIAL SQ SCH ×3 (06:05→22:34)
[2017-08-28 07:28] LABS: Hematocrit 34.7 % (35.3-44.9); Hemoglobin 10.7 g/dL (11.5-15.4); Mean Corpuscular HGB Conc 30.8 g/dL (31.6-35.5); Mean Corpuscular Hemoglobin 29.7 pg (28.0-33.3); Mean Corpuscular Volume 96.4 fL (83.0-100.0); Mean Platelet Volume 11.2 fL (9.4-12.4); Platelet Count 188 K/mcL (140-400); Red Cell Distribution Width 14.2 % (11.5-14.5)
[2017-08-28 07:50] LABS: Calcium 8.7 mg/dL (8.6-10.8); Magnesium 1.6 mg/dL (1.6-2.6); Phosphorous 2.3 mg/dL (2.3-4.7); Potassium 3.1 mEq/L (3.5-4.5)
[2017-08-28 07:59] LABS: Lymphocytes # 11.8 K/mcL (0.6-4.6); Monocytes # 0.6 K/mcL (0.0-1.3); Neutrophils # 3.5 K/mcL (1.6-8.9)
[2017-08-28 08:07] LABS: Platelet Estimate Normal (Normal)
[2017-08-28] MEDS: Milk and Molasses Enema 200 ML RC SCH (08:08)
[2017-08-28] MEDS ORDERED: Potassium Chloride 40 MEQ, Lidocaine 1% 2 ML in D5% in Water 500 ML IVPB ONE (08:26)
--- NOTE | 2017-08-28 09:23 | General Surgery Progress Note ---
<Ashley Seymour - Last Filed: 08/28/17 13:39> Date of Encounter: 08/28/17 Time of Encounter: 09:20 - Assessment and Plan (1) Small bowel obstruction Current Visit: Yes Status: Acute Patient states are abdominal discomfort is improving. Her bowel sounds are active. Episode of vomiting 08/27/2017 and replaced NG. Pt has been given one dose of miaralx 08/26/17 prior to vomiting, and 2 MOM enemas. She has had bowel output of (brown) LIQUID enema material and no stool noted. Total NG and emesis output in the last 36 hours-3775 ml. Plan: -Remain NPO. -Cardiology consult for risk stratification (spoke with Dr. JOHN x1 (had one negative on 08/24), NM Pharmacological stress test today, echo today -Continue NG to LIWS, May clamp for testing. 2-view CXR for NG tube placement and preop -Continue reglan and MOM enemas -Continue PPI prophylaxis -No clear source for increased WBC. Will continue to monitor. Repeat am labs -Replace electrolytes prn -Replace gastric losses at 1:1 rate Will add lawrence for accurate I/Os. PICC and TPN today; At this time, we will continue plan for exploratory laparotomy and possible small bowel resection with Dr. Ortiz on 08/29/2017. The above was reviewed with patient as well as risks and benefits of the procedure. Patient is agreeable to proceed. (2) Ovarian mass Current Visit: Yes Status: Acute Per alliance manager notes: 8.2cm Left ovarian cyst found incidentally on abd CT. Pelvic US confirms cystic nodule in left adnexa suspicious for cystic ovarian neoplasm given pt age until proven otherwise measuring 7.4 x 5.7 x 6.3 cm. Pt has history of cervical cancer with hysterectomy in 1968 and CLL. Patient denies any pelvic pain or symptoms prior to acute SBO symptoms. Discussed that there is the potential that this could be a malignancy. She states "Well I am 78, I don't want surgery." Patient not currently amendable to invasive testing. Discussed that she could see the EMERGENCY DEPARTMENT as an outpatient and discuss testing and options further once she is feeling better. She is agreeable to this. Recommendations: -Will get CA-125 with AM labs -Recommend outpatient referral to EMERGENCY DEPARTMENT for further discussion and evaluation Discussed patient and plan with attending, Dr. Arzate, who is agrees with plan and recommendations. (3) DVT prophylaxis Current Visit: Yes Status: Acute EPCDs while in bed Heparin SQ BID Ambulate at least TID (4) Hypokalemia Current Visit: Yes Status: Acute See above Subjective Patient reports: still having pain, pain is less, voiding w/o difficulty, no flatus, no bowel movement (2 recorded bms, but per techs it was the contents of enemas only. ), vomiting, afebrile Objective Vital Signs - Last 8 Hours Temp Pulse Resp BP Pulse Ox 08/28/17 07:56 98.3 F 76 16 146/68 96 08/28/17 03:35 98.3 F 79 17 131/69 95 Intake and Output 08/27/17 08/28/17 08/28/17 23:59 07:59 15:59 Intake Total 1816 / 1816 1000 / 1000 440 / 440 Output Total 800 / 800 1500 / 1500 625 / 625 Balance 1016 / 1016 -500 / -500 -185 / -185 Intake: IV Fluids 1816 / 1816 1000 / 1000 440 / 440 0.9 % Sodium Chloride 1,000 ML 1000 / 1000 440 / 440 @ 100 mls/hr IVC .Q10H [facility] Rx#: [id number] KCl 20mEq IN D5%-0.45 NACL 20 294 / 294 meq In 1,000 ml @ 30 mls/hr IVC .Q24H [facility] Rx#:[id number] Oral 0 / 0 0 / 0 Output: Urine 350 / 350 200 / 200 Stool 400 / 400 Gastric Drainage 800 / 800 750 / 750 425 / 425 Other: Meal NPO Stool Size Small Stool Consistency liquid liquid soft Stool Color Brown Brown Weight 79 kg Blood Glucose* 124 127 Patient Weight 08/28/17 23:59 Weight 79 kg - General physical appearance well developed, well nourished, no distress, moderate pain - Eyes normal ocular movement - ENT atraumatic, normocephalic - Neck Neck exam: trachea midline, no venous distension - Respiratory normal expansion, normal respiratory effort, clear to auscultation - Cardiovascular Cardiovascular exam: Present: RRR, murmurs - Abdomen Abdomen: Present: bowel sounds present, soft, non tender - Integumentary no rash, no growths - Neurologic CN 2-12 grossly intact, normal coordination, normal sensation - Musculoskeletal normal gait, normal posture - Psychiatric oriented to time, oriented to person, oriented to place, speech is normal, memory intact - Labs 08/28/17 06:47 08/28/17 06:47 Diabetes panel 08/28/17 Range/Units 06:47 Sodium 145 (136-145) mEq/L Potassium 3.1 L (3.5-4.5) mEq/L Chloride 99 (98-109) mEq/L Carbon Dioxide 40 H* (19-29) mEq/L BUN 20 (7-20) mg/dL Creatinine 1.19 H (0.57-1.11) mg/dL Glucose 130 H (70-99) mg/dL Calcium 8.7 (8.6-10.8) mg/dL Calcium panel 08/28/17 Range/Units 06:47 Calcium 8.7 (8.6-10.8) mg/dL Phosphorus 2.3 (2.3-4.7) mg/dL Pituitary panel 08/28/17 Range/Units 06:47 Sodium 145 (136-145) mEq/L Potassium 3.1 L (3.5-4.5) mEq/L Chloride 99 (98-109) mEq/L Carbon Dioxide 40 H* (19-29) mEq/L BUN 20 (7-20) mg/dL Creatinine 1.19 H (0.57-1.11) mg/dL Glucose 130 H (70-99) mg/dL Calcium 8.7 (8.6-10.8) mg/dL Adrenal panel 08/28/17 Range/Units 06:47 Sodium 145 (136-145) mEq/L Potassium 3.1 L (3.5-4.5) mEq/L Chloride 99 (98-109) mEq/L Carbon Dioxide 40 H* (19-29) mEq/L BUN 20 (7-20) mg/dL Creatinine 1.19 H (0.57-1.11) mg/dL Glucose 130 H (70-99) mg/dL Calcium 8.7 (8.6-10.8) mg/dL - VTE Documentation of Mechanical Device: Graduated compression elastic hosiery Consult Discharge Plan - Plan Referrals: Jose Miguel Sanabria MD [Primary Care Provider] - Jack Arzate MD [Partnered Physician] - <Darrion Ortiz - Last Filed: 08/29/17 07:13> Date of Encounter: 08/29/17 - Assessment and Plan (1) Small bowel obstruction Current Visit: Yes Status: Inactive (2) DVT prophylaxis Current Visit: Yes Status: Acute (3) Diabetes mellitus Current Visit: Yes Status: Acute Qualifiers: Diabetes mellitus type: type 2 Diabetes mellitus complication status: with other specified complication Diabetes mellitus terminal manager insulin use: without senior living use Qualified Code(s): E11.69 - Type 2 diabetes mellitus with other specified complication (4) HTN (hypertension) Current Visit: Yes Status: Acute Qualifiers: Hypertension type: essential hypertension Qualified Code(s): I10 - Essential (primary) hypertension (5) Left ovarian cyst Current Visit: Yes Status: Acute Objective Vital Signs - Last 8 Hours Temp Pulse Resp BP Pulse Ox 08/29/17 04:23 98.8 F 84 18 158/81 92 08/28/17 23:55 98.8 F 87 18 157/75 90 Intake and Output 08/28/17 08/28/17 08/29/17 15:59 23:59 07:59 Intake Total 1222 / 1222 800 / 800 1250 / 1250 Output Total 625 / 625 1125 / 1125 1250 / 1250 Balance 597 / 597 -325 / -325 0 / 0 Intake: IV Fluids 1222 / 1222 800 / 800 1250 / 1250 0.9 % Sodium Chloride 1,000 ML 700 / 700 300 / 300 1000 / 1000 @ 100 mls/hr IVC .Q10H [facility] Rx#: [id number] 0.9 % Sodium Chloride 500 ML @ 500 / 500 250 mls/hr IVC .Q2H [facility] Rx#: [id number] Intralipid 20% 250 ML @ 21 mls/ 250 / 250 hr IVPB MoWeFr@1700 [facility] Rx#: [id number] KCl 40 MEQ Xylocaine 2 ML In 522 / 522 Dextrose 5% 500 ML @ 130.5 mls/ hr IVPB ONCE [facility] Rx#:[id number] Output: Urine 200 / 200 Catheter 425 / 425 550 / 550 Gastric Drainage 425 / 425 700 / 700 700 / 700 Other: Meal NPO NPO Stool Size Small Stool Consistency liquid Stool Color Brown Weight 79 kg 79.4 kg Blood Glucose* 114 176 184 Patient Weight 08/29/17 23:59 Weight 79.4 kg - Labs 08/29/17 03:35 08/29/17 03:35 Diabetes panel 08/28/17 08/28/17 08/29/17 Range/Units 06:47 16:06 03:35 Sodium 145 143 142 (136-145) mEq/L Potassium 3.1 L 3.4 L 3.3 L (3.5-4.5) mEq/L Chloride 99 99 102 (98-109) mEq/L Carbon Dioxide 40 H* 33 H 31 H (19-29) mEq/L BUN 20 18 15 (7-20) mg/dL Creatinine 1.19 H 0.99 0.83 (0.57-1.11) mg/dL Glucose 130 H 146 H 142 H (70-99) mg/dL Calcium 8.7 8.6 8.1 L (8.6-10.8) mg/dL Triglycerides (< 150) mg/dL 08/29/17 Range/Units 03:35 Sodium (136-145) mEq/L Potassium (3.5-4.5) mEq/L Chloride (98-109) mEq/L Carbon Dioxide (19-29) mEq/L BUN (7-20) mg/dL Creatinine (0.57-1.11) mg/dL Glucose (70-99) mg/dL Calcium (8.6-10.8) mg/dL Triglycerides 236 H (< 150) mg/dL Calcium panel 08/28/17 08/28/17 08/29/17 Range/Units 06:47 16:06 03:35 Calcium 8.7 8.6 8.1 L (8.6-10.8) mg/dL Phosphorus 2.3 1.6 L 1.5 L (2.3-4.7) mg/dL Pituitary panel 08/28/17 08/28/17 08/29/17 Range/Units 06:47 16:06 03:35 Sodium 145 143 142 (136-145) mEq/L Potassium 3.1 L 3.4 L 3.3 L (3.5-4.5) mEq/L Chloride 99 99 102 (98-109) mEq/L Carbon Dioxide 40 H* 33 H 31 H (19-29) mEq/L BUN 20 18 15 (7-20) mg/dL Creatinine 1.19 H 0.99 0.83 (0.57-1.11) mg/dL Glucose 130 H 146 H 142 H (70-99) mg/dL Calcium 8.7 8.6 8.1 L (8.6-10.8) mg/dL Adrenal panel 08/28/17 08/28/17 08/29/17 Range/Units 06:47 16:06 03:35 Sodium 145 143 142 (136-145) mEq/L Potassium 3.1 L 3.4 L 3.3 L (3.5-4.5) mEq/L Chloride 99 99 102 (98-109) mEq/L Carbon Dioxide 40 H* 33 H 31 H (19-29) mEq/L BUN 20 18 15 (7-20) mg/dL Creatinine 1.19 H 0.99 0.83 (0.57-1.11) mg/dL Glucose 130 H 146 H 142 H (70-99) mg/dL Calcium 8.7 8.6 8.1 L (8.6-10.8) mg/dL - Attending Attestation I have personally seen and examined the patient. I have reviewed pertinent labs , imaging, progress notes, including this one. I agree with the above assessment and plan and wish to include the following... 77F with prior abdominal surgeries who presents with sbo. Currently afebrile, VSS; labs consistent with contraction alkalosis from NG tube losses; abdomen is non peritoneal and distended. patient still without bowel function and has failed trial of NG tube discontinuation. The decision is made to proceed with operative intervention. Patient also evaluated by cardiology. Her risk for surgery is higher and any intervention they would perform, if needed, would need to be interrupted at least 30 days. Due to her disease, she cannot continue 30 days obstructed.
[2017-08-28] MEDS ORDERED: D10% in Water 500 ML IVC PRN (10:04)
[2017-08-28] MEDS ORDERED: Lidocaine -MPF 1% 2 ML VIAL INFILT ONE (11:27)
[2017-08-28] MEDS ORDERED: Regadenoson 0.4 MG/5 ML SYRINGE IVP ONE (13:00)
--- NOTE | 2017-08-28 15:12 | Nuclear Medicine Stress Report ---
Regadenoson Nuclear Stress Name: Shirin Bello Date of Study: 08/28/2017 Date: 1940 Ht: 63.0 in Medical Record#: [id number] Age: 77 Wt: 174.0 lb Gender: Female Order #: [id number] Location[facility] Room: 3a Supervising Provider: Lalita Loya CNP Reading Physician: Akil Ortiz MD, [facility] Ordering Physician: Bro Mcmahon MD Stress Technologist: Caitlyn Holland, ROUTE MANAGER, CCT, CPFT Thermograph Operator: Ayleen Baez Indications: Chest Pain Impression: Gated LVEF > 70%. Small sized, moderate-severe intensity, reversible perfusion defect involving the basal inferior wall. Findings are consistent with a small area of reversible myocardial ischemia. All other segmental perfusion normal in rest and stress. Abnormal results were discussed with the inpatient cardiology consult team who is seeing the patient. History: Hypertension Diabetes Hypercholesteremia Stress Test Summary: Stress Test Type: Pharmacologic Regadenoson 0.4mg/5ml given IV Baseline Information: Initial Heart Rate: 93 Blood Pressure: 124/80 Stress Information: Test Terminated Due to (primary): As per protocol Maximum Blood Pressure: 132/70 Maximum Heart Rate: 120 Percent Maximum Heart Rate Achieved: 85 Double Product: [id number] Symptoms: Headache Nuclear Summary: SPECT myocardial perfusion imaging using Tc99m Sestamibi given intravenously was performed at rest and following cardiac stress testing. The resting images were obtained following initial dose of 11.6 mCi. Following stress an additional dose of 32.8 mCi was given at peak exercise or 30 seconds post regadenoson infusion. Findings: Stress Note * Resting ECG demonstrated sinus rhythm, mild non-specific ST-T wave abnormality. * No baseline arrhythmias were noted. * Patient had no chest pain during stress. * No arrhythmias were noted during stress. * No significant ECG changes with regadenoson. Hemodynamic responses * Normal hemodynamic responses to pharmacologic stress. Study Quality * Study quality is good. Gated EF > 70% * Gated LVEF > 70%. Left Ventricle * The left ventricle is not dilated. * Small sized, moderate-severe intensity, reversible perfusion defect involving the basal inferior wall. Findings are consistent with a small area of reversible myocardial ischemia. * All other segmental perfusion normal in rest and stress. TID * No evidence of transient ischemic dilatation. Updated by Akil Ortiz MD, FACC on 08/28/2017 3:04:41 PM electronically signed on 08/28/2017 3:06:09 PM with status of Final
[2017-08-28] MEDS ORDERED: 0.9 % Sodium Chloride 500 ML IVC ONE (15:44)
--- NOTE | 2017-08-28 15:52 | Cardiology Consult Note ---
Date of Encounter: 08/28/17 Time of Encounter: 15:51 - Attending Attestation I have personally performed a face to face evaluation on this patient. I have reviewed and agree with the care plan. History and Exam by me shows: Subjective: Ms. Bello presents with symptoms of nausea, vomiting and constipation. She was discovered to have a SBO. At the bedside, the patient states that she has not had any recent chest pain. She typically is able to be fairly active. She denies any history of CVD. Exam: Vital signs reviewed. Agree with exam findings documented by MOP MAKER. ECG on admission demonstrated sinus tachycardia without ischemic findings. Impression: We've been asked to evaluate this patient preoperatively for possible ex-lap for SBP tomorrow. Patient underwent stress testing demonstrating a small area of ischemia in the basal inferior wall. However, she denies recent symptoms and has fair functional status. Her ECG is without ischemic findings and LV EF is normal on stress testing. I discussed these findings with the patient. I do not think invasive testing for a possible small area of ischemia would significantly decrease her perioperative cardiovascular risk and furthermore, would delay her surgery for at least 30 days. Given the potential urgency of the situation, I would not recommend proceeding with an invasive approach. Recommend PO beta casper and resuming her statin and low dose aspirin once able to tolerate oral. This was also discussed with Dr. Ortiz. Echo is pending. Assessment and Plan (1) Pre-operative cardiovascular examination Current Visit: Yes Status: Acute Pre-op risk stratification for exploratory laparotomy and possible small bowel resection. Pt reports being able to achieve 4 METS without chest pain or dyspnea. Pharmacoloigic nuclear stress test today shows gated EF >70%, small sized, moderate-severe intensity reversible perfusion defect involving basal inferior wall. Findings consistent with small area of reversible myocardial ischemia. All other segmental perfusion normal in rest and stress. Echo pending. Pt denies any personal cardiac hx, has never had a LHC. Risk factors for CAD include family hx, HTN, HLD, DM. Troponin negative x 1. Given pt's SBO, she needs surgery. If we were to proceed with LHC and PCI is warranted, her surgery would have to be delayed for at least 30 days, which is not recommended. Given pt is asymptomatic from a cardiac standpoint and abnormality on stress is a small area, recommend proceeding with surgery at intermediate risk from cardiac standpoint. Pt is aware of R/B/A. As long as there are no significant echo findings, cardiology will sign off with outpt follow-up. Pt is currently NPO. Would recommend starting ASA 81mg daily, Statin, BB post op once able to tolerate PO meds. (2) Abnormal stress test Current Visit: Yes Status: Acute As above. Discussion w patient/family: The assessment and plan as outlined above was discussed with the patient and/or family members who expressed understanding and agreement. All questions were answered. Thank you for involving us in the care of your patient. Please call with any questions. I will discuss all the above with Dr. Watts and make changes as necessary. History of Present Illness Consult date: 08/28/17 Requesting physician: Ashley Seymour Consult reason: pre-op Chief complaint: abdominal pain History of present illness: Ms. Bello is a 77 year old female with PMH of HTN, HLD, DM that presented with a chief complaint of nausea, vomiting and no bowel movement for 3 days, found to have a small bowel obstruction. There are plans for exploratory laparotomy and possible small bowel resection tomorrow. Cardiology consulted for pre-op risk stratification. Pt denies chest pain or dyspnea--reports being fairly active for her age, able to clean her own house, vacuum, climb stairs, all without chest pain or dyspnea. Pharmacoloigic nuclear stress test today shows gated EF >70%, small sized, moderate-severe intensity reversible perfusion defect involving basal inferior wall. Findings consistent with small area of reversible myocardial ischemia. All other segmental perfusion normal in rest and stress. Echo pending. Pt denies any personal cardiac hx, has never had a LHC. Past Med Surg Social Fam HX - Past Medical History Medical history: arthritis, cancer (cervical, CLL), diabetes, hypertension, other Psychiatric history: no psych history - Past Surgical History Surgical History: cholecystectomy, hysterectomy (1968) - Social History Smoking Status: Never smoker Smokeless Tobacco Status: No Alcohol use: none Drug use: none - Family History Mother Living Status: Hx Family Cancer: Yes (colon cancer) Father Living Status: Medications and Allergies Acetaminophen [Tylenol Arthritis] 500 mg PO QID PRN 02/03/17 [History] Allopurinol [Zyloprim] 300 mg PO DAILY 02/03/17 [History] Atorvastatin [Lipitor] 10 mg PO HS 02/03/17 [History] [place] Cit/Mag/D3/Zn/Material Liaison/Nikhil/Bor [Citracal-Vit D + Magnesium Tab] 1 each PO DAILY 02/03/17 [History] [place]-3/Dha/Epa/Fish Oil [Fish Oil 1,000 mg Softgel] 1,200 mg PO DAILY 02/03/17 [History] metFORMIN [Glucophage] 500 mg PO BIDWM 02/03/17 [History] Amlodipine Besylate/Benazepril [Lotrel 5-40 mg Capsule] 1 cap PO DAILY 08/24/17 [History] Aspirin [Lo-Dose Aspirin EC] 81 mg PO DAILY 08/24/17 [History] Vit A/C/E AC/Znox/Cupric Oxide [Eye Vitamin-Minerals Tablet] 1 each PO DAILY 06/03 [History] 3 Allergy/AdvReac Type Severity Reaction Status Date / Time No Known Allergies Allergy Verified 02/03/17 08:33 All Systems Review: A 10-system review of systems was performed and is negative for pertinent findings except as documented above in the HPI. - Gastrointestinal Gastrointestinal: abdominal pain, constipation, nausea Physical Examination Vital Signs, Last 4 Hours Temp Pulse Resp BP Pulse Ox 08/28/17 15:35 97.8 F 84 16 149/75 93 08/28/17 11:52 98.4 F 71 18 162/70 91 Vital Signs Temp Pulse Resp BP Pulse Ox 08/28/17 15:35 97.8 F 84 16 149/75 93 08/28/17 11:52 98.4 F 71 18 162/70 91 08/28/17 07:56 98.3 F 76 16 146/68 96 08/28/17 03:35 98.3 F 79 17 131/69 95 08/27/17 19:05 99.0 F 76 18 124/66 93 Intake and Output 08/28/17 08/28/17 08/28/17 07:59 15:59 23:59 Intake Total 1000 / 1000 700 / 700 Output Total 1500 / 1500 625 / 625 Balance -500 / -500 75 / 75 Intake: IV Fluids 1000 / 1000 700 / 700 0.9 % Sodium Chloride 1,000 ML 1000 / 1000 700 / 700 @ 100 mls/hr IVC .Q10H [facility] Rx#: [id number] Oral 0 / 0 Output: Urine 350 / 350 200 / 200 Stool 400 / 400 Gastric Drainage 750 / 750 425 / 425 Other: Meal NPO Stool Size Small Stool Consistency liquid liquid soft Stool Color Brown Brown Weight 79 kg 79 kg Blood Glucose* 127 114 Patient Weight 08/28/17 23:59 Weight 79 kg General: Conversant, No Apparent Distress HEENT: Atraumatic, Normocephaly, Mucus Membranes Moist Neck: No JVD, Normal carotid pulses Cardiac: Reg Rate and Rhythm, Normal S1 and S2, No Murmur Lungs: Normal Breath Sounds, No Wheeze, Rales, Rhonchi Neuro: Alert and responsive, No focal deficits noted Abdomen: Other (tender) Skin: No rashes noted on visualized skin Musculoskeletal: No Chest Wall Tenderness Extremities: No Clubbing, No Cyanosis, No Edema, Normal Pulses Results 08/28/17 16:06 08/28/17 16:06 Lab Results 08/28/17 08/28/17 08/28/17 06:47 06:47 09:33 WBC 15.9 H Hgb 10.7 L Hct 34.7 L Plt Count 188 Sodium 145 Potassium 3.1 L Chloride 99 Carbon Dioxide 40 H* BUN 20 Creatinine 1.19 H Glucose 130 H Calcium 8.7 Magnesium 1.6 Troponin I 0.01 Short CBC 08/28/17 Range/Units 06:47 WBC 15.9 H (4.3-11.1) K/mcL Hgb 10.7 L (11.5-15.4) g/dL Hct 34.7 L (35.3-44.9) % Plt Count 188 (140-400) K/mcL Neutrophils # 3.5 (1.6-8.9) K/mcL BMP 08/28/17 Range/Units 06:47 Sodium 145 (136-145) mEq/L Potassium 3.1 L (3.5-4.5) mEq/L Chloride 99 (98-109) mEq/L Carbon Dioxide 40 H* (19-29) mEq/L BUN 20 (7-20) mg/dL Creatinine 1.19 H (0.57-1.11) mg/dL Glucose 130 H (70-99) mg/dL Calcium 8.7 (8.6-10.8) mg/dL Cardiac Enzymes 08/28/17 Range/Units 09:33 Troponin I 0.01 (0-0.03) ng/mL Impressions Chest X-Ray 08/28/17 09:22 IMPRESSION: Nasogastric tube in good position. No evidence of acute cardiopulmonary disease. D/ / Philippe Gandara MD / Philippe Gandara MD Interpreting Provider: Philippe Gandara MD Active Medications Dextrose/Water (Dextrose 50% (Syg)) 25 ml IVP AD PRN PRN Reason: Hypoglycemia Stop: 02/23/18 15:32 Glucagon (Glucagen) 1 mg IM ONCE PRN PRN Reason: Hypoglycemia Stop: 02/23/18 15:32 Glucose (Gluctose) 15 gm PO ONCE PRN PRN Reason: Hypoglycemia Stop: 02/23/18 15:32 Glucose (Gluctose) 30 gm PO ONCE PRN PRN Reason: Hypoglycemia Stop: 02/23/18 15:32 Heparin Sodium (Porcine) (Heparin) 5,000 unit SQ Q8HCO [facility] Stop: 02/23/18 14:01 Last Admin: 08/28/17 15:18 Dose: 5,000 unit Dextrose (Dextrose 5%) 1,000 mls @ 100 mls/hr IVC .Q10H PRN PRN Reason: HYPOGLYCEMIA Stop: 02/23/18 15:32 Sodium Chloride (0.9 % Sodium Chloride) 1,000 mls @ 100 mls/hr IVC .Q10H [facility] Stop: 02/26/18 15:16 Last Infusion: 08/28/17 11:41 Dose: 100 mls/hr Dextrose (Dextrose 10% Water 500 Ml Ivbag) 500 mls @ 50 mls/hr IVC .Q10H PRN PRN Reason: TPN delayed or interrupted Stop: 02/27/18 10:05 Fat Emulsion Intravenous (Intralipid 20%) 250 mls @ 21 mls/hr IVPB MoWeFr@1700 [facility] Stop: 02/27/18 17:01 Multivitamins 10 ml/ Amino (Acids/Electrolytes) 2,010 mls @ 45 mls/hr IVC .Q24H [facility] PRN Reason: Protocol Stop: 08/29/17 16:59 Sodium Chloride (0.9 % Sodium Chloride) 500 mls @ 250 mls/hr IVC .Q2H [facility] Stop: 08/28/17 17:43 Insulin Human Lispro (Humalog) 0 units SQ Q6HR [facility] PRN Reason: Protocol Stop: 02/23/18 18:01 Last Admin: 08/28/17 12:12 Dose: Not Given Metoclopramide HCl (Reglan) 10 mg IVP Q6HR [facility] Stop: 02/26/18 12:01 Last Admin: 08/28/17 12:29 Dose: 10 mg Metoprolol Tartrate (Lopressor) 5 mg IVP Q6HR PRN PRN Reason: SEE COMMENTS Stop: 02/23/18 12:34 Multi-Ingredient GI Drug (Milk And Molasses Enema) 200 ml RC BID [facility] Stop: 02/26/18 11:46 Last Admin: 08/28/17 08:08 Dose: 200 ml Multi-Ingredient Mucositis [place] (Chloraseptic) 2 spray MM QID PRN PRN Reason: Sore Throat Stop: 02/26/18 18:41 Ondansetron HCl (Zofran) 4 mg IVP Q4H PRN; Protocol PRN Reason: Nausea And Vomiting Stop: 02/25/18 20:21 Polyethylene Glycol (Miralax) 17 gm PO DAILY [facility] Stop: 02/26/18 11:46 Last Admin: 08/28/17 08:06 Dose: Not Given - Imaging and Cardiology Stress Test: report reviewed Echo: pending - EKG Interpretation EKG results cardiology: personally reviewed (sinus tach rate 125) Consult Discharge Plan - Plan Referrals: Jose Miguel Sanabria MD [Primary Care Provider] - Jack Arzate MD [Partnered Physician] -
[2017-08-28 16:18] LABS: Basophils # 0.2 K/mcL (0.0-0.2); Basophils % 0.8 %; Eosinophils # 0.1 K/mcL (0.0-0.6); Eosinophils % 0.3 %; Hematocrit 36.7 % (35.3-44.9); Hemoglobin 11.6 g/dL (11.5-15.4); Immature Granulocytes % 3.3 % (0-4); Lymphocytes # 11.1 K/mcL (0.6-4.6); Lymphocytes % 54.8 %; Mean Corpuscular HGB Conc 31.6 g/dL (31.6-35.5); Mean Corpuscular Hemoglobin 29.6 pg (28.0-33.3); Mean Corpuscular Volume 93.6 fL (83.0-100.0); Monocytes # 1.7 K/mcL (0.0-1.3); Monocytes % 8.2 %; Neutrophils # 6.6 K/mcL (1.6-8.9); Platelet Count 190 K/mcL (140-400); Red Blood Count 3.92 M/mcL (3.82-4.97); Segmented Neutrophils % 32.6 %
[2017-08-28 16:31] LABS: BUN/Creatinine Ratio 18 (6-26); Blood Urea Nitrogen 18 mg/dL (7-20); Calcium 8.6 mg/dL (8.6-10.8); Carbon Dioxide 33 mEq/L (19-29); Chloride 99 mEq/L (98-109); Glucose 146 mg/dL (70-99); Magnesium 1.6 mg/dL (1.6-2.6); Osmolality,Calculated 301 (280-300); Phosphorous 1.6 mg/dL (2.3-4.7); Potassium 3.4 mEq/L (3.5-4.5); Sodium 143 mEq/L (136-145); eGFR For African Americans > 60 (> 60); eGFR For Non-African Americans 54 (> 60)
[2017-08-28] MEDS ORDERED: Clinimix E 5%-15% SOLUTION 2,000 ML with MVI, adult with vitamin K 10 ML IVC SCH (17:00)
--- NOTE | 2017-08-28 18:49 | Anesthesia Evaluation PreOp ---
Date of Encounter: 08/28/17 Time of Encounter: 18:47 - Past History Planned Operation: Exp. Laparotomy Cardiac History: HTN, Hyperlipidemia, Other Pulmonary History: Denies Any Significant HX LAUNDROMAT MANAGER History: Denies Any Significant HX Other Medical History: Diabetes Type II, Other (Left Ovarian cyst) Anesthesia History: No Prior Anesthetic Complications, Past Anesthesia (RAZIA, GB) : No Alcohol Use: none Drug use: none Medications and Allergies Acetaminophen [Tylenol Arthritis] 500 mg PO QID PRN 02/03/17 [History] Allopurinol [Zyloprim] 300 mg PO DAILY 02/03/17 [History] Atorvastatin [Lipitor] 10 mg PO HS 02/03/17 [History] Curtis Cit/Mag/D3/Zn/Picker Feeder/Nikhil/Bor [Citracal-Vit D + Magnesium Tab] 1 each PO DAILY 02/03/17 [History] [place]-3/Dha/Epa/Fish Oil [Fish Oil 1,000 mg Softgel] 1,200 mg PO DAILY 02/03/17 [History] metFORMIN [Glucophage] 500 mg PO BIDWM 02/03/17 [History] Amlodipine Besylate/Benazepril [Lotrel 5-40 mg Capsule] 1 cap PO DAILY 08/24/17 [History] Aspirin [Lo-Dose Aspirin EC] 81 mg PO DAILY 08/24/17 [History] Vit A/C/E AC/Znox/Cupric Oxide [Eye Vitamin-Minerals Tablet] 1 each PO DAILY 06/03 [History] 3 Allergy/AdvReac Type Severity Reaction Status Date / Time No Known Allergies Allergy Verified 02/03/17 08:33 - Meds/Allergy Pre-op Review Medications Reviewed: Yes Allergies Reviewed: Yes Beta Blockers on Current Med List: No If Beta Blockers taken, Date/Time (Last Dose taken): Given on PRN basis, check for AM dose Anesthesia Results - Labs 08/28/17 16:06 08/28/17 16:06 Echocardiogram Name: Shirin Lynda Ace Date of Study: 08/28/2017 Impressions: Normal LV systolic function, LVEF 65%. Mild LV basal septal hypertrophy. No evidence of LVOT obstruction. Mild left ventricular diastolic dysfunction. Normal right ventricular size and function. Mild mitral regurgitation. Mild pulmonic regurgitation. No evidence of pulmonary hypertension. Stress Test Date of Study: 08/28/2017 Date: 1940 Impression: Gated LVEF > 70%. Small sized, moderate-severe intensity, reversible perfusion defect involving the basal inferior wall. Findings are consistent with a small area of reversible myocardial ischemia. All other segmental perfusion normal in rest and stress. Abnormal results were discussed with the inpatient cardiology consult team who is seeing the patient. Cardiology Consult Her ECG is without ischemic findings and LV EF is normal on stress testing. I discussed these findings with the patient. I do not think invasive testing for a possible small area of ischemia would significantly decrease her perioperative cardiovascular risk and furthermore, would delay her surgery for at least 30 days. Given the potential urgency of the situation, I would not recommend proceeding with an invasive approach. Recommend PO beta casper and resuming her statin and low dose aspirin once able to tolerate oral. - Imaging EKG: image reviewed (SINUS TACHYCARDIA BORDERLINE LEFT AXIS DEVIATION) Anesthesia Exam O2 Sat Weight 79 kg Weight 79 kg O2 Sat by Pulse Oximetry 93 O2 Sat by Pulse Oximetry 91 O2 Sat by Pulse Oximetry 96 O2 Sat by Pulse Oximetry 95 O2 Sat by Pulse Oximetry 93 Vital Signs Temp Pulse Resp BP Pulse Ox 97.9 F 109 20 109/57 93 08/24/17 10:11 08/24/17 10:11 08/24/17 10:11 08/24/17 10:11 08/24/17 10:11 Height: 5'3'' Weight: 174# NPO (# of Hours): > 8n hrs Pain Scale: 0 - HEENT Pupil (Motor): Pupils equal, EOMI Mallampati: II Teeth: Normal Oral Opening: Greater than 3 - LAUNDROMAT MANAGER LOC: Oriented, Confused LAUNDROMAT MANAGER Motor: Normal RUE, Normal LUE, Normal RLE, Normal LLE, Normal Face LAUNDROMAT MANAGER Sensory: Normal: RUE, LUE, RLE, LLE, Face - Cardiac Rhythm: Regular Murmur: None JVD: No Carotid Bruit: No - Pulmonary Breath Sounds: bilateral Clear Respiratory Effort: Symmetrical Anesthesia Assess/Plan ASA Score: 3 Modified [place] Scale for Level of Consciousness: Cooperative, oriented, and tranquil Anesthetic Plan: General Autologous Blood: Yes Monitoring Plan: Standard Monitors, A-Line Recovery Plan: PACU
[2017-08-29] MEDS: Insulin LISPRO 300 UNITS/3 ML VIAL SQ SCH ×5 (00:07→23:32)
[2017-08-29] MEDS: Metoclopramide 10 MG/2 ML VIAL IVP SCH ×5 (00:07→23:30)
[2017-08-29 03:50] LABS: Hematocrit 31.8 % (35.3-44.9); Hemoglobin 10.4 g/dL (11.5-15.4); Mean Corpuscular HGB Conc 32.7 g/dL (31.6-35.5); Mean Corpuscular Hemoglobin 30.2 pg (28.0-33.3); Mean Corpuscular Volume 92.4 fL (83.0-100.0); Mean Platelet Volume 11.1 fL (9.4-12.4); Nucleated Red Blood Cells 0.2 /100 WBC (0); Platelet Count 170 K/mcL (140-400); Red Blood Count 3.44 M/mcL (3.82-4.97); Red Cell Distribution Width 13.9 % (11.5-14.5)
[2017-08-29 04:10] LABS: BUN/Creatinine Ratio 18 (6-26); Blood Urea Nitrogen 15 mg/dL (7-20); Calcium 8.1 mg/dL (8.6-10.8); Carbon Dioxide 31 mEq/L (19-29); Chloride 102 mEq/L (98-109); Glucose 142 mg/dL (70-99); Magnesium 1.5 mg/dL (1.6-2.6); Osmolality,Calculated 297 (280-300); Phosphorous 1.5 mg/dL (2.3-4.7); Potassium 3.3 mEq/L (3.5-4.5); Sodium 142 mEq/L (136-145); eGFR For African Americans > 60 (> 60); eGFR For Non-African Americans > 60 (> 60)
[2017-08-29 04:18] LABS: Lymphocytes # 9.7 K/mcL (0.6-4.6); Monocytes # 3.2 K/mcL (0.0-1.3); Neutrophils # 7.3 K/mcL (1.6-8.9)
[2017-08-29 04:19] LABS: Platelet Estimate Normal (Normal)
[2017-08-29] MEDS: *HR* Heparin 5,000 UNIT/ML VIAL SQ SCH ×2 (05:10→13:28)
[2017-08-29] MEDS: 0.9 % Sodium Chloride 1,000 ML IVC SCH ×3 (06:01→23:28)
[2017-08-29] MEDS: Piperacillin/Tazobactam 3.375 GM in D5% in Water (Mini-Bag+) 100 ML IVPB SCH ×3 (07:54→23:28)
[2017-08-29] MEDS ORDERED: cefOXitin 2,000 MG in D5% in Water (Mini-Bag+) 100 ML IVPB ONE (08:54)
--- NOTE | 2017-08-29 10:15 | General Surgery Progress Note ---
Date of Encounter: 08/29/17 Time of Encounter: 07:30 - Assessment and Plan (1) Small bowel obstruction Current Visit: Yes Status: Inactive 77F with prior abdominal surgeries who presents with sbo likely due to adhesive disease; currently rehydrated and having return of bowel function; still with high NG output -OR today; started abx because I am no longer to able to account for leukocytosis (2) DVT prophylaxis Current Visit: Yes Status: Acute cont with SQH (3) Diabetes mellitus Current Visit: Yes Status: Acute cont ISS; cont current glucose goal of 150 Qualifiers: Diabetes mellitus type: type 2 Diabetes mellitus complication status: with other specified complication Diabetes mellitus intermediate insulin use: without middle or intermediate school principal use Qualified Code(s): E11.69 - Type 2 diabetes mellitus with other specified complication (4) HTN (hypertension) Current Visit: Yes Status: Acute cont with lopressor with current parameters Qualifiers: Hypertension type: essential hypertension Qualified Code(s): I10 - Essential (primary) hypertension (5) Left ovarian cyst Current Visit: Yes Status: Acute will likely call inbound telemarketer for intraop evaluation Subjective Patient reports: no new complaints Objective Vital Signs - Last 8 Hours Temp Pulse Resp BP Pulse Ox 08/29/17 07:26 98 F 99 18 166/93 95 08/29/17 04:23 98.8 F 84 18 158/81 92 Intake and Output 08/28/17 08/29/17 08/29/17 23:59 07:59 15:59 Intake Total 800 / 800 2091 0 / 0 Output Total 1125 / 1125 1950 / 1950 Balance -325 / -325 142 / 142 0 / 0 Intake: IV Fluids 800 / 800 2091 0.9 % Sodium Chloride 1,000 ML 300 / 300 1185 / 1185 @ 100 mls/hr IVC .Q10H [facility] Rx#: [id number] 0.9 % Sodium Chloride 500 ML @ 500 / 500 250 mls/hr IVC .Q2H ONE Rx#: [id number] Clinimix E 5%-15% SOLUTION 2, 657 / 657 000 ML @ 45 mls/hr IVC .Q24H [facility] with M.v.i. Adult 10 ml Rx# :[id number] Intralipid 20% 250 ML @ 21 mls/ 250 / 250 hr IVPB MoWeFr@1700 MIK[facility] Rx#: [id number] Oral 0 / 0 Output: Catheter 425 / 425 700 / 700 Gastric Drainage 700 / 700 1250 / 1250 Other: Meal NPO NPO Weight 79.4 kg Blood Glucose* 176 185 Patient Weight 08/29/17 23:59 Weight 79.4 kg - General physical appearance well developed - Eyes normal ocular movement - Respiratory normal expansion, normal respiratory effort, clear to auscultation - Cardiovascular Cardiovascular exam: Present: RRR - Abdomen Abdomen: Present: soft, non tender, distended - Integumentary no rash - Labs 08/29/17 03:35 08/29/17 03:35 Diabetes panel 08/28/17 08/29/17 08/29/17 Range/Units 16:06 03:35 03:35 Sodium 143 142 (136-145) mEq/L Potassium 3.4 L 3.3 L (3.5-4.5) mEq/L Chloride 99 102 (98-109) mEq/L Carbon Dioxide 33 H 31 H (19-29) mEq/L BUN 18 15 (7-20) mg/dL Creatinine 0.99 0.83 (0.57-1.11) mg/dL Glucose 146 H 142 H (70-99) mg/dL Calcium 8.6 8.1 L (8.6-10.8) mg/dL Triglycerides 236 H (< 150) mg/dL Calcium panel 08/28/17 08/29/17 Range/Units 16:06 03:35 Calcium 8.6 8.1 L (8.6-10.8) mg/dL Phosphorus 1.6 L 1.5 L (2.3-4.7) mg/dL Pituitary panel 08/28/17 08/29/17 Range/Units 16:06 03:35 Sodium 143 142 (136-145) mEq/L Potassium 3.4 L 3.3 L (3.5-4.5) mEq/L Chloride 99 102 (98-109) mEq/L Carbon Dioxide 33 H 31 H (19-29) mEq/L BUN 18 15 (7-20) mg/dL Creatinine 0.99 0.83 (0.57-1.11) mg/dL Glucose 146 H 142 H (70-99) mg/dL Calcium 8.6 8.1 L (8.6-10.8) mg/dL Adrenal panel 08/28/17 08/29/17 Range/Units 16:06 03:35 Sodium 143 142 (136-145) mEq/L Potassium 3.4 L 3.3 L (3.5-4.5) mEq/L Chloride 99 102 (98-109) mEq/L Carbon Dioxide 33 H 31 H (19-29) mEq/L BUN 18 15 (7-20) mg/dL Creatinine 0.99 0.83 (0.57-1.11) mg/dL Glucose 146 H 142 H (70-99) mg/dL Calcium 8.6 8.1 L (8.6-10.8) mg/dL - VTE Documentation of Mechanical Device: Graduated compression elastic hosiery Consult Discharge Plan - Plan Referrals: Jose Miguel Sanabria MD [Primary Care Provider] - Jack Arzate MD [Partnered Physician] -
[2017-08-29] MEDS ORDERED: Clinimix E 5%-15% SOLUTION 2,000 ML with MVI, adult with vitamin K 10 ML IVC SCH ×2 (17:00→22:11)
[2017-08-29] MEDS ORDERED: Ondansetron 4 MG/2 ML VIAL ONE (18:37)
[2017-08-29] MEDS ORDERED: *HR* Rocuronium Bromide 50 MG/5 ML VIAL ONE (18:37)
[2017-08-29] MEDS ORDERED: *HR* Propofol 200 MG/20 ML VIAL IVP ONE (18:37)
[2017-08-29] MEDS ORDERED: Neostigmine Methylsulfate 3 MG/3 ML SYRINGE ONE (18:37)
[2017-08-29] MEDS ORDERED: Dexamethasone 4 MG/ML VIAL ONE (18:37)
[2017-08-29] MEDS ORDERED: *HR* FentaNYL (PF) 100 MCG/2 ML VIAL ONE ×2 (18:37→21:31)
[2017-08-29] MEDS ORDERED: *HR* Succinylcholine 200 MG/10 ML VIAL IVP ONE (18:37)
[2017-08-29] MEDS ORDERED: *HR* Phenylephrine 10 MG/ML VIAL ONE (19:38)
--- NOTE | 2017-08-29 21:20 | Operative Note ---
Date of procedure: 08/29/17 Pre-op diagnosis: small bowel obstruction Post-op diagnosis: same Procedure: exploratory laparotomy extensive lysis of adhesions for ~ 90minutes Implants: none Complications: none Anesthesia: GETA Local Anesthetics: 0.5% Sensorcaine HCL SubQ (cc) Surgeon: Darrion Ortiz Grease Monkey: Lincoln Coronado Grease Monkey Other: gretel ogden Estimated blood loss (cc): 50 Condition: stable Disposition: PACU Procedure in Detail: Run to the operating suite placed in the supine position, underwent smooth induction of anesthesia, prepped and draped in usual fashion preoperative antibiotic given, a timeout was held identifying correct patient pathology and procedure. Everyone was in agreement to repeating the procedure. A 10 blade scalpel was used to create a midline incision. Using the electrocautery, tension-countertension, I was able to get down to the fascia and enter into the abdomen. I grasp the fascia on one side of the field and used electrocautery and dewayne scissors to lysis adhesions. The same was performed on the opposite side with the intent of freeing the intraabdominal contents from the abdominal wall. Most of the work occurred down in the pelvis. This is the area of the most dense adhesiona. We were careful not to injure the bowel by lysing in areas that were completely see through and cutting from the free edge of an adhesion. We were able to free the bowel in the pelvis and run the bowel from the ligament of treitz to the cecum. There was one area in particular that was particularly dense along the right side. This was the area where we believe the obstruction occurred. After lysing those adhesions, I ran the bowel again, deemed that the bowel was viable and that resection would not be necessary. There was one area with a serosal tear that we repaired with interrupted 3-0 silk suture. In addition, I was able to palpate the ovarian mass seen on CT scan. It felt hard, but was mobile. The decision was made not to call Gynecology for an intraoperative consult because they were already consulted twice to evaluate this mass. In addition, due to the dense adhesions that were there, I felt that it would not be worth the risk for surgical evaluation. At this point the decision was made to conclude the procedure. The fascia was closed using a PDS suture that was looped in a running fashion. deep dermal sutures were used with 3-0 vicryl in an interrupted fashion. The skin was stapled closed and dressed with xeroform, guaze, and medipore tape. The patient tolerated the procedure well and was transported to PACU in stable condition.
[2017-08-29] MEDS ORDERED: *HR* HYDROmorphone 20 MG/20 ML PCA IVC PRN (21:29)
--- NOTE | 2017-08-29 21:56 | Anesthesia Evaluation Post Op ---
Date of Encounter: 08/29/17 Time of Encounter: 21:56 - Vital Signs Vital Signs: Vital Signs/O2 Sat, Most Current Temp Pulse Resp BP Pulse Ox 97.1 F L 106 20 131/86 92 08/29/17 21:42 08/29/17 21:42 08/29/17 21:42 08/29/17 21:42 08/29/17 21:42 - Lungs Lungs: Clear Ascult./Percussion - Airway Airway: Non-obstructed - Cardiovascular Regular Rate - Mental Status Mental Status: Alert & Oriented, Answers Appropriately - Pain Pain Scale: 0 Pain Scale used: Numeric (1 - 10) - Nausea Vomiting Nausea Vomiting: Not Present - Hydration Hydration: NPO, Phillips catheter - Discharge PostOp Status: Transfer Patient to floor
[2017-08-29] MEDS ORDERED: *HR* Dextrose 50 % in Water (Syg) 50 ML SYRINGE IVP PRN (22:11)
[2017-08-29] MEDS ORDERED: Ondansetron 4 MG/2 ML VIAL IVP PRN (22:11)
[2017-08-29] MEDS ORDERED: D10% in Water 500 ML IVC PRN (22:11)
[2017-08-29] MEDS ORDERED: Chloraseptic Spray 177 ML BOTTLE MM PRN (22:11)
[2017-08-29] MEDS ORDERED: *HR* Metoprolol 5 MG/5 ML VIAL IVP PRN (22:11)
[2017-08-29] MEDS ORDERED: D5% in Water 1,000 ML IVC PRN (22:11)
[2017-08-29] MEDS ORDERED: Dextrose Gel 15 GM PO PRN ×2 (22:11)
[2017-08-29] MEDS: *HR* HYDROmorphone 20 MG/20 ML PCA IVC PRN (23:21)
[2017-08-30] MEDS: Insulin LISPRO 300 UNITS/3 ML VIAL SQ SCH ×5 (06:02→20:25)
[2017-08-30] MEDS: Metoclopramide 10 MG/2 ML VIAL IVP SCH ×3 (06:03→17:33)
[2017-08-30] MEDS: *HR* Heparin 5,000 UNIT/ML VIAL SQ SCH ×3 (06:07→20:26)
[2017-08-30] MEDS: 0.9 % Sodium Chloride 1,000 ML IVC SCH ×2 (09:09→11:20)
[2017-08-30] MEDS: Piperacillin/Tazobactam 3.375 GM in D5% in Water (Mini-Bag+) 100 ML IVPB SCH ×2 (09:11→20:28)
--- NOTE | 2017-08-30 09:11 | General Surgery Progress Note ---
Date of Encounter: 08/30/17 Time of Encounter: 09:09 - Assessment and Plan (1) Small bowel obstruction Current Visit: Yes Status: Inactive 77F with prior abdominal surgeries who presents with sbo POD #1 s/p ex lap, extensive MARIA DE JESUS -- cont NG tube - cap total fluids at 125 - follow up labs, replete lytes - cont HORSE RACE STARTER for pain control; - incentive spirometer - OOBTC - ARBF - no enemas needed (2) DVT prophylaxis Current Visit: Yes Status: Acute cont with SQH - cont with SCDs (3) Diabetes mellitus Current Visit: Yes Status: Acute cont ISS; cont current glucose goal of 150 - consider increasing to more aggressive sliding scale Qualifiers: Diabetes mellitus type: type 2 Diabetes mellitus complication status: with other specified complication Diabetes mellitus superintendent container terminal insulin use: without [place] use Qualified Code(s): E11.69 - Type 2 diabetes mellitus with other specified complication (4) HTN (hypertension) Current Visit: Yes Status: Acute cont with lopressor with current parameters Qualifiers: Hypertension type: essential hypertension Qualified Code(s): I10 - Essential (primary) hypertension (5) Left ovarian cyst Current Visit: Yes Status: Acute follow up with Documentation Lead as outpt Subjective Patient reports: still having pain, afebrile (no acute events overnight; no reports of chest pain or shortness breath; only reports feeling 'sore' along her incision) Objective Vital Signs - Last 8 Hours Temp Pulse Resp BP Pulse Ox 08/30/17 07:30 99.2 F 104 17 125/77 95 08/30/17 04:19 98.6 F 112 16 124/81 95 Intake and Output 08/29/17 08/30/17 08/30/17 23:59 07:59 15:59 Intake Total 100 / 100 884 / 884 Output Total 700 / 700 300 / 300 Balance -600 / -600 584 / 584 Intake: IV Fluids 100 / 100 884 / 884 Clinimix E 5%-15% SOLUTION 2, 784 / 784 000 ML @ 65 mls/hr IVC .Q24H [facility] with M.v.i. Adult 10 ml Rx# :[id number] Zosyn 3.375 GM In Dextrose 5% ( 100 / 100 100 / 100 Minibag+) 100 ML 100 ML @ 25 mls/hr IVPB Q8HR [facility] Rx#: [id number] Oral 0 / 0 Output: Urine 0 / 0 Estimated Blood Loss 50 / 50 Catheter 300 / 300 Gastric Drainage 650 / 650 Other: Meal Dinner NPO Weight 80.9 kg Blood Glucose* 274 203 Patient Weight 08/30/17 23:59 Weight 80.9 kg - General physical appearance well developed, well nourished, no distress - Respiratory normal expansion, normal respiratory effort, clear to auscultation - Cardiovascular Cardiovascular exam: Present: RRR - Abdomen Abdomen: Present: soft, tender (appropriately tender to palpation at midline incision; non peritoneal; ) - Neurologic CN 2-12 grossly intact - Psychiatric oriented to time, oriented to person, oriented to place - Labs 08/29/17 03:35 08/29/17 03:35 - VTE Documentation of Mechanical Device: Intermittent pneumatic compression device Consult Discharge Plan - Plan Referrals: Jose Miguel Sanabria MD [Primary Care Provider] - Jack Arzate MD [Partnered Physician] -
[2017-08-30 09:59] LABS: BUN/Creatinine Ratio 22 (6-26); Blood Urea Nitrogen 23 mg/dL (7-20); Calcium 7.7 mg/dL (8.6-10.8); Carbon Dioxide 29 mEq/L (19-29); Chloride 104 mEq/L (98-109); Glucose 190 mg/dL (70-99); Magnesium 1.4 mg/dL (1.6-2.6); Osmolality,Calculated 299 (280-300); Potassium 3.7 mEq/L (3.5-4.5); Sodium 140 mEq/L (136-145); eGFR For African Americans > 60 (> 60); eGFR For Non-African Americans 51 (> 60)
[2017-08-30 10:00] LABS: Phosphorous 2.4 mg/dL (2.3-4.7)
--- NOTE | 2017-08-30 11:47 | General Surgery Progress Note ---
Date of Encounter: 08/30/17 Time of Encounter: 11:30 Objective Vital Signs - Last 8 Hours Temp Pulse Resp BP Pulse Ox 08/30/17 11:27 97.5 F L 105 17 138/87 93 08/30/17 07:30 99.2 F 104 17 125/77 95 08/30/17 04:19 98.6 F 112 16 124/81 95 Intake and Output 08/29/17 08/30/17 08/30/17 23:59 07:59 15:59 Intake Total 100 / 100 884 / 884 1000 / 1000 Output Total 700 / 700 300 / 300 Balance -600 / -600 584 / 584 1000 / 1000 Intake: IV Fluids 100 / 100 884 / 884 1000 / 1000 0.9 % Sodium Chloride 1,000 ML 1000 / 1000 @ 100 mls/hr IVC .Q10H [facility] Rx#: [id number] Clinimix E 5%-15% SOLUTION 2, 784 / 784 000 ML @ 65 mls/hr IVC .Q24H MIKAL with M.v.i. Adult 10 ml Rx# :[id number] Zosyn 3.375 GM In Dextrose 5% ( 100 / 100 100 / 100 Minibag+) 100 ML 100 ML @ 25 mls/hr IVPB Q8HR [facility] Rx#: [id number] Oral 0 / 0 Output: Urine 0 / 0 Estimated Blood Loss 50 / 50 Catheter 300 / 300 Gastric Drainage 650 / 650 Other: Meal Dinner NPO Weight 80.9 kg Blood Glucose* 274 203 233 Patient Weight 08/30/17 23:59 Weight 80.9 kg - Labs 08/29/17 03:35 08/30/17 09:20 Diabetes panel 08/30/17 Range/Units 09:20 Sodium 140 (136-145) mEq/L Potassium 3.7 (3.5-4.5) mEq/L Chloride 104 (98-109) mEq/L Carbon Dioxide 29 (19-29) mEq/L BUN 23 H (7-20) mg/dL Creatinine 1.05 (0.57-1.11) mg/dL Glucose 190 H (70-99) mg/dL Calcium 7.7 L (8.6-10.8) mg/dL Calcium panel 08/30/17 Range/Units 09:20 Calcium 7.7 L (8.6-10.8) mg/dL Phosphorus 2.4 D (2.3-4.7) mg/dL Pituitary panel 08/30/17 Range/Units 09:20 Sodium 140 (136-145) mEq/L Potassium 3.7 (3.5-4.5) mEq/L Chloride 104 (98-109) mEq/L Carbon Dioxide 29 (19-29) mEq/L BUN 23 H (7-20) mg/dL Creatinine 1.05 (0.57-1.11) mg/dL Glucose 190 H (70-99) mg/dL Calcium 7.7 L (8.6-10.8) mg/dL Adrenal panel 08/30/17 Range/Units 09:20 Sodium 140 (136-145) mEq/L Potassium 3.7 (3.5-4.5) mEq/L Chloride 104 (98-109) mEq/L Carbon Dioxide 29 (19-29) mEq/L BUN 23 H (7-20) mg/dL Creatinine 1.05 (0.57-1.11) mg/dL Glucose 190 H (70-99) mg/dL Calcium 7.7 L (8.6-10.8) mg/dL - VTE Documentation of Mechanical Device: Intermittent pneumatic compression device Consult Discharge Plan - Plan Referrals: Jose Miguel Sanabria MD [Primary Care Provider] - Jack Arzate MD [Partnered Physician] -
[2017-08-30] MEDS ORDERED: Sodium Phosphate 30 MMOL in D5% in Water 100 ML IVPB ONE (11:48)
[2017-08-30] MEDS ORDERED: Magnesium Sulfate 2 GM in D5% in Water 100 ML IVPB ONE ×2 (11:48→12:05)
[2017-08-30] MEDS ORDERED: Potassium Phosphate 44 MEQ in 0.9 % Sodium Chloride 250 ML IVPB ONE (12:05)
[2017-08-30] MEDS ORDERED: Clinimix E 5%-15% SOLUTION 2,000 ML with MVI, adult with vitamin K 10 ML, Magnesium S... IVC SCH (17:00)
[2017-08-30] MEDS ORDERED: Magnesium Sulfate 4 GM in D5% in Water 100 ML IVPB ONE (17:33)
[2017-08-30 19:11] LABS: Alanine Aminotransferase 59 Units/L (0-55); Alkaline Phosphatase 97 Units/L (38-126); Aspartate Amino Transferase 47 Units/L (5-34); Bilirubin,Total 0.2 mg/dL (0.2-1.2); Total Protein 5.3 g/dL (6.0-8.3)
[2017-08-30 22:23] LABS: Hematocrit 35.9 % (35.3-44.9); Hemoglobin 11.1 g/dL (11.5-15.4); Mean Corpuscular HGB Conc 30.9 g/dL (31.6-35.5); Mean Corpuscular Hemoglobin 29.7 pg (28.0-33.3); Mean Platelet Volume 11.8 fL (9.4-12.4); Nucleated Red Blood Cells 0.1 /100 WBC (0); Platelet Count 219 K/mcL (140-400); Red Blood Count 3.74 M/mcL (3.82-4.97); Red Cell Distribution Width 14.6 % (11.5-14.5)
[2017-08-30 23:14] LABS: Lymphocytes # 13.6 K/mcL (0.6-4.6); Monocytes # 2.9 K/mcL (0.0-1.3); Neutrophils # 17.9 K/mcL (1.6-8.9)
[2017-08-30 23:15] LABS: Platelet Estimate Normal (Normal); Smudge Cells Present (Not Present)
[2017-08-31] MEDS: Insulin LISPRO 300 UNITS/3 ML VIAL SQ SCH ×5 (00:23→15:58)
[2017-08-31] MEDS: Metoclopramide 10 MG/2 ML VIAL IVP SCH ×4 (00:25→17:06)
[2017-08-31] MEDS: Piperacillin/Tazobactam 3.375 GM in D5% in Water (Mini-Bag+) 100 ML IVPB SCH ×3 (04:18→22:53)
[2017-08-31] MEDS: *HR* Heparin 5,000 UNIT/ML VIAL SQ SCH ×3 (04:21→22:55)
[2017-08-31] MEDS: 0.9 % Sodium Chloride 1,000 ML IVC SCH (04:26)
[2017-08-31 04:59] LABS: Hematocrit 33.1 % (35.3-44.9); Hemoglobin 10.3 g/dL (11.5-15.4); Mean Corpuscular HGB Conc 31.1 g/dL (31.6-35.5); Mean Corpuscular Hemoglobin 29.5 pg (28.0-33.3); Mean Corpuscular Volume 94.8 fL (83.0-100.0); Mean Platelet Volume 11.5 fL (9.4-12.4); Red Blood Count 3.49 M/mcL (3.82-4.97); Red Cell Distribution Width 14.7 % (11.5-14.5)
[2017-08-31 05:01] LABS: Platelet Count 199 K/mcL (140-400)
[2017-08-31 05:35] LABS: Eosinophils # 1.4 K/mcL (0.0-0.6); Lymphocytes # 17.7 K/mcL (0.6-4.6); Monocytes # 3.5 K/mcL (0.0-1.3); Neutrophils # 12.7 K/mcL (1.6-8.9)
[2017-08-31 05:36] LABS: Platelet Estimate Normal (Normal); Reactive Lymphocytes Present (Not Present)
[2017-08-31 05:37] LABS: Smudge Cells Present (Not Present); Toxic Granulation Present (Not Present)
[2017-08-31 05:39] LABS: BUN/Creatinine Ratio 27 (6-26); Carbon Dioxide 25 mEq/L (19-29); Chloride 104 mEq/L (98-109); Glucose 209 mg/dL (70-99); Osmolality,Calculated 299 (280-300); Phosphorous 2.3 mg/dL (2.3-4.7); Potassium 3.4 mEq/L (3.5-4.5); Sodium 139 mEq/L (136-145); eGFR For African Americans > 60 (> 60); eGFR For Non-African Americans 56 (> 60)
[2017-08-31 05:40] LABS: Blood Urea Nitrogen 26 mg/dL (7-20)
--- NOTE | 2017-08-31 11:58 | General Surgery Progress Note ---
Date of Encounter: 09/02/17 Time of Encounter: 11:55 - Assessment and Plan (1) Small bowel obstruction Current Visit: Yes Status: Acute Patient is postop day 2 from an exploratory laparotomy with lysis of adhesion. Continue with NG tube decompression. Patient on TPN. Awaiting return of bowel function. We will start dressing changes today. Continue with ice chips. Leukocytosis noted with white count 35,000. The patient's levels may have started to plateau. We will continue to follow CBC. On Zosyn. (2) HTN (hypertension) Current Visit: Yes Status: Acute Continue with Lopressor. Qualifiers: Hypertension type: essential hypertension Qualified Code(s): I10 - Essential (primary) hypertension (3) Diabetes mellitus Current Visit: Yes Status: Acute Noted elevated glucose levels. Will change sliding scale to high coverage. Qualifiers: Diabetes mellitus type: type 2 Diabetes mellitus complication status: with other specified complication Diabetes mellitus senior care insulin use: without senior care use Qualified Code(s): E11.69 - Type 2 diabetes mellitus with other specified complication (4) Hypokalemia Current Visit: Yes Status: Acute Potassium noted to be 3.4. We will replace with IV KCL. Subjective Patient reports: no new complaints (Denies nausea or vomiting. NGT in place. No flatus or BM. 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.) Objective Vital Signs - Last 8 Hours Temp Pulse Resp BP Pulse Ox 08/31/17 11:20 98.2 F 102 18 175/98 91 08/31/17 09:04 113 20 150/84 08/31/17 07:38 98.4 F 108 18 148/79 94 08/31/17 04:02 97.6 F 99 18 171/93 93 Intake and Output 08/30/17 08/31/17 08/31/17 23:59 07:59 15:59 Intake Total 1724 / 1724 1350 / 1350 Output Total 1000 / 1000 Balance 1724 / 1724 350 / 350 Intake: IV Fluids 110 / 110 1350 / 1350 Intralipid 20% 250 ML @ 21 mls/ 250 / 250 hr IVPB MoWeFr@1700 [facility] Rx#: [id number] Zosyn 3.375 GM In Dextrose 5% ( 100 / 100 Minibag+) 100 ML 100 ML @ 25 mls/hr IVPB Q8H [facility] Rx#: [id number] Sodium Phosphate 30 MMOL In 110 / 110 Dextrose 5% 100 ML @ 16 mls/hr IVPB ONCE ONE Rx#:[id number] Oral 0 / 0 Infusion Intake 1614 / 1614 Output: Urine 0 / 0 Catheter 550 / 550 Gastric Drainage 450 / 450 Other: Meal NPO NPO Blood Glucose* 239 283 245 - General physical appearance well nourished, no distress - Respiratory normal expansion, normal respiratory effort - Cardiovascular Cardiovascular exam: Present: RRR, no murmurs/rubs/gallops - Abdomen Abdomen: Present: bowel sounds present (scant), soft, tender (noted midline incisinoal tenderness. Mild ecchymosis. No erythema. No drainage.) - Labs 09/02/17 05:17 09/02/17 05:17 Diabetes panel 08/30/17 08/31/17 Range/Units 09:20 04:15 Sodium 140 139 (136-145) mEq/L Potassium 3.7 3.4 L (3.5-4.5) mEq/L Chloride 104 104 (98-109) mEq/L Carbon Dioxide 29 25 (19-29) mEq/L BUN 23 H 26 H (7-20) mg/dL Creatinine 1.05 0.96 (0.57-1.11) mg/dL Glucose 190 H 209 H (70-99) mg/dL Calcium 7.7 L 8.0 L (8.6-10.8) mg/dL AST 47 H (5-34) Units/L ALT 59 H (0-55) Units/L Alkaline Phosphatase 97 (38-126) Units/L Calcium panel 08/30/17 08/31/17 Range/Units 09:20 04:15 Calcium 7.7 L 8.0 L (8.6-10.8) mg/dL Phosphorus 2.4 D 2.3 (2.3-4.7) mg/dL Pituitary panel 08/30/17 08/31/17 Range/Units 09:20 04:15 Sodium 140 139 (136-145) mEq/L Potassium 3.7 3.4 L (3.5-4.5) mEq/L Chloride 104 104 (98-109) mEq/L Carbon Dioxide 29 25 (19-29) mEq/L BUN 23 H 26 H (7-20) mg/dL Creatinine 1.05 0.96 (0.57-1.11) mg/dL Glucose 190 H 209 H (70-99) mg/dL Calcium 7.7 L 8.0 L (8.6-10.8) mg/dL Adrenal panel 08/30/17 08/31/17 Range/Units 09:20 04:15 Sodium 140 139 (136-145) mEq/L Potassium 3.7 3.4 L (3.5-4.5) mEq/L Chloride 104 104 (98-109) mEq/L Carbon Dioxide 29 25 (19-29) mEq/L BUN 23 H 26 H (7-20) mg/dL Creatinine 1.05 0.96 (0.57-1.11) mg/dL Glucose 190 H 209 H (70-99) mg/dL Calcium 7.7 L 8.0 L (8.6-10.8) mg/dL Total Bilirubin 0.2 (0.2-1.2) mg/dL AST 47 H (5-34) Units/L ALT 59 H (0-55) Units/L Alkaline Phosphatase 97 (38-126) Units/L - VTE Documentation of Mechanical Device: Intermittent pneumatic compression device Consult Discharge Plan - Plan Referrals: Jose Miguel Sanabria MD [Primary Care Provider] - Jack Arzate MD [Partnered Physician] -
[2017-08-31] MEDS ORDERED: Potassium Chloride 40 MEQ/200 ML BAG IVPB PRN (16:35)
[2017-08-31] MEDS ORDERED: Potassium Chloride 40 MEQ/200 ML BAG IVPB ONE (16:50)
[2017-08-31] MEDS ORDERED: Clinimix E 5%-15% SOLUTION 2,000 ML with MVI, adult with vitamin K 10 ML, Magnesium S... IVC SCH (17:00)
[2017-09-01] MEDS: 0.9 % Sodium Chloride 1,000 ML IVC SCH ×2 (02:59→22:27)
[2017-09-01] MEDS: Insulin LISPRO 300 UNITS/3 ML VIAL SQ SCH ×6 (03:51→22:30)
[2017-09-01] MEDS: Metoclopramide 10 MG/2 ML VIAL IVP SCH ×5 (09:35→22:29)
[2017-09-01] MEDS: *HR* Heparin 5,000 UNIT/ML VIAL SQ SCH ×4 (09:36→22:30)
[2017-09-01] MEDS: Piperacillin/Tazobactam 3.375 GM in D5% in Water (Mini-Bag+) 100 ML IVPB SCH ×3 (09:36→22:28)
--- NOTE | 2017-09-01 12:15 | General Surgery Progress Note ---
Date of Encounter: 09/01/17 Time of Encounter: 12:12 - Assessment and Plan (1) Small bowel obstruction Current Visit: Yes Status: Acute Patient is postop day 3 from an exploratory laparotomy with lysis of adhesion. Will place NG tube to the Phillips bag gravity drainage. The dark discoloration may be some blood likely due to NG tube trauma. TPN. Today with ice chips for now. Increase in white count 37,000. Will obtain urinalysis and blood cultures. Will prophylactically start IV Diflucan as well. (2) HTN (hypertension) Current Visit: Yes Status: Acute Continue with Lopressor. Qualifiers: Hypertension type: essential hypertension Qualified Code(s): I10 - Essential (primary) hypertension (3) Diabetes mellitus Current Visit: Yes Status: Acute Noted elevated glucose levels. Blood glucose level of 188 improved compared to yesterday's evaluation. Continue with high insulin coverage. 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 No flatus. Noted dark discoloration in NGT) Objective Vital Signs - Last 8 Hours Temp Pulse Resp BP Pulse Ox 09/01/17 11:37 97.7 F 102 15 163/90 96 09/01/17 08:11 97.5 F L 102 18 161/79 94 Intake and Output 08/31/17 09/01/17 09/01/17 23:59 07:59 15:59 Intake Total 100 / 100 1000 / 1000 100 / 100 Output Total 750 / 750 1350 / 1350 350 / 350 Balance -650 / -650 -350 / -350 -250 / -250 Intake: IV Fluids 100 / 100 1000 / 1000 100 / 100 0.9 % Sodium Chloride 1,000 ML 1000 / 1000 @ 100 mls/hr IVC .Q10H [facility] Rx#: [id number] Zosyn 3.375 GM In Dextrose 5% ( 100 / 100 Minibag+) 100 ML 100 ML @ 25 mls/hr IVPB Q8H [facility] Rx#: [id number] Potassium Chloride 20 mEq/100 100 / 100 mL 20 meq In 100 ml @ 100 mls/ hr IVPB Q1H [facility] Rx#:[id number] Oral 0 / 0 0 / 0 0 / 0 Output: Catheter 250 / 250 450 / 450 350 / 350 Gastric Drainage 500 / 500 900 / 900 Other: Meal NPO Weight 80.9 kg Blood Glucose* 201 306 188 Patient Weight 09/01/17 23:59 Weight 80.9 kg - General physical appearance well nourished, no distress - Respiratory normal respiratory effort - Abdomen Abdomen: Present: bowel sounds present, soft, tender (Mild tenderness to palpation. Scant BS.) - Labs 09/02/17 05:17 09/02/17 05:17 - VTE Documentation of Mechanical Device: Intermittent pneumatic compression device Consult Discharge Plan - Plan Referrals: Jose Miguel Sanabria MD [Primary Care Provider] - Jack Arzate MD [Partnered Physician] -
[2017-09-01 12:20] LABS: Glucose 180 mg/dL (70-99)
[2017-09-01 12:22] LABS: Hematocrit 28.3 % (35.3-44.9); Immature Platelets 7.5 % (1.1-6.1); Mean Corpuscular HGB Conc 31.8 g/dL (31.6-35.5); Mean Corpuscular Hemoglobin 29.6 pg (28.0-33.3); Mean Corpuscular Volume 93.1 fL (83.0-100.0); Mean Platelet Volume 11.4 fL (9.4-12.4); Platelet Count 196 K/mcL (140-400); Red Blood Count 3.04 M/mcL (3.82-4.97); Red Cell Distribution Width 14.6 % (11.5-14.5)
[2017-09-01 12:32] LABS: BUN/Creatinine Ratio 33 (6-26); Calcium 8.6 mg/dL (8.6-10.8); Carbon Dioxide 30 mEq/L (19-29); Chloride 104 mEq/L (98-109); Magnesium 1.8 mg/dL (1.6-2.6); Phosphorous 1.4 mg/dL (2.3-4.7); Potassium 3.5 mEq/L (3.5-4.5); Sodium 142 mEq/L (136-145); eGFR For African Americans > 60 (> 60); eGFR For Non-African Americans > 60 (> 60)
[2017-09-01 12:33] LABS: Blood Urea Nitrogen 27 mg/dL (7-20)
[2017-09-01 12:34] LABS: Osmolality,Calculated 304 (280-300)
[2017-09-01 13:09] LABS: Lymphocytes # 21.5 K/mcL (0.6-4.6); Monocytes # 2.6 K/mcL (0.0-1.3); Neutrophils # 12.6 K/mcL (1.6-8.9)
[2017-09-01 13:10] LABS: Platelet Estimate Normal (Normal)
[2017-09-01 13:11] LABS: Reactive Lymphocytes Present (Not Present)
[2017-09-01] MEDS ORDERED: Fluconazole 200 MG/100 ML 200 MG/100 ML BAG IVPB ONE (13:45)
[2017-09-01 14:02] LABS: Bilirubin,Urine Negative (Negative); Blood,Urine Moderate (Negative); Clarity,Urine Cloudy (Clear); Color,Urine Yellow (Yellow); Glucose,Urine (UA) 250 mg/dL (Normal); Ketones,Urine Negative (Negative); Leukocyte Esterase,Urine Negative (Negative); Nitrite,Urine Negative (Negative); Protein,Urine 100 mg/dL (Neg-Trace); Specific Gravity,Urine 1.027 (1.010-1.025); Urobilinogen,Urine Normal (Normal)
[2017-09-01 14:09] LABS: RBC,Urine 15-30 per hpf (0-3); Squamous Epithelial Cell,Urine Few per lpf (None-Few); WBC,Urine 0-3 per hpf (0-3)
[2017-09-01 14:10] LABS: Bacteria,Urine Few per hpf (None-Few)
[2017-09-01] MEDS ORDERED: Clinimix E 5%-15% SOLUTION 2,000 ML with MVI, adult with vitamin K 10 ML, Magnesium S... IVC SCH (17:00)
[2017-09-02 05:25] LABS: Hemoglobin 8.3 g/dL (11.5-15.4); Nucleated Red Blood Cells 0.1 /100 WBC (0)
[2017-09-02 05:26] LABS: Hematocrit 26.3 % (35.3-44.9); Mean Corpuscular HGB Conc 31.6 g/dL (31.6-35.5); Mean Corpuscular Hemoglobin 29.5 pg (28.0-33.3); Mean Corpuscular Volume 93.6 fL (83.0-100.0); Mean Platelet Volume 11.9 fL (9.4-12.4); Platelet Count 171 K/mcL (140-400); Red Blood Count 2.81 M/mcL (3.82-4.97); Red Cell Distribution Width 14.7 % (11.5-14.5)
[2017-09-02 05:36] LABS: BUN/Creatinine Ratio 33 (6-26); Blood Urea Nitrogen 27 mg/dL (7-20); Calcium 8.3 mg/dL (8.6-10.8); Carbon Dioxide 28 mEq/L (19-29); Chloride 104 mEq/L (98-109); Glucose 218 mg/dL (70-99); Magnesium 1.7 mg/dL (1.6-2.6); Osmolality,Calculated 304 (280-300); eGFR For African Americans > 60 (> 60); eGFR For Non-African Americans > 60 (> 60)
[2017-09-02 05:39] LABS: Phosphorous 2.5 mg/dL (2.3-4.7); Potassium 3.5 mEq/L (3.5-4.5); Sodium 141 mEq/L (136-145)
[2017-09-02 05:57] LABS: Eosinophils # 0.6 K/mcL (0.0-0.6); Neutrophils # 12.7 K/mcL (1.6-8.9)
[2017-09-02 05:58] LABS: Large Platelets Present (Not Present); Platelet Estimate Normal (Normal)
[2017-09-02] MEDS: Metoclopramide 10 MG/2 ML VIAL IVP SCH ×3 (06:28→21:11)
[2017-09-02] MEDS: *HR* Heparin 5,000 UNIT/ML VIAL SQ SCH ×3 (06:28→21:20)
[2017-09-02] MEDS: Piperacillin/Tazobactam 3.375 GM in D5% in Water (Mini-Bag+) 100 ML IVPB SCH (06:29)
[2017-09-02] MEDS: Insulin LISPRO 300 UNITS/3 ML VIAL SQ SCH ×5 (08:41→21:12)
[2017-09-02] MEDS ORDERED: Magnesium Sulfate 2 GM in D5% in Water 100 ML IVPB ONE (09:15)
--- NOTE | 2017-09-02 09:26 | General Surgery Progress Note ---
<Vikki Wadsworth - Last Filed: 09/02/17 09:21> Date of Encounter: 09/02/17 Time of Encounter: 09:00 - Assessment and Plan (1) Small bowel obstruction Current Visit: Yes Status: Inactive s/p exploratory laparotomy by Dr. Ortiz 08/29/17. NG has been placed to gravity. NG= 900ml. Diet still NPO with ice chips with TPN running. NS @100ml/ hr. Patient's glucoses have been running high and is now on a high corrective slide scale. d/c antibiotics. No BM yet. Plan: - Diet: NPO with TPN running - NS @ 100ml/hr - Necessary to ambulate with assistance TID, NG to clamp for ambulation - d/c antibiotics as patient has a hx of CLL. - replace magnesium 2mg, repeat labs tomorrow - d/c lawrence catheter - (2) Electrolyte abnormality Current Visit: Yes Status: Acute Mg= 1.7. Replaced with 2gm. Will repeat labs tomorrow. (3) Left ovarian cyst Current Visit: Yes Status: Acute US showed a cystic nodule is seen in the left adnexae measuring 7.4 x 5.7 x 6.3 cm suspicious for cystic ovarian neoplasm, given the patient's age, until proven otherwise. OBGYN consulted. Ca-125= 35. Patient denies desiring any invasive treatment at this time but agrees to f/u with SHIPFITTERS SUPERVISOR outpatient for further discussion and evaluation. (4) HTN (hypertension) Current Visit: Yes Status: Acute cont with lopressor with current parameters Qualifiers: Hypertension type: essential hypertension Qualified Code(s): I10 - Essential (primary) hypertension (5) Diabetes mellitus Current Visit: Yes Status: Acute ISS to moderate scale; goal of 150s for glucose. Still above that. High dose sliding scale. Qualifiers: Diabetes mellitus type: type 2 Diabetes mellitus complication status: with other specified complication Diabetes mellitus senior living insulin use: without marine oil terminal superintendent use Qualified Code(s): E11.69 - Type 2 diabetes mellitus with other specified complication (6) DVT prophylaxis Current Visit: Yes Status: Acute SQ heparin continue Subjective Narrative: Ms. Bello is a 77 y/o F with a pmh of CLL and multiple abdominal surgeries presented with SBO and is s/p exploratory laparotomy (08/29/17 Dr. Ortiz). Today patient is getting tired of the NG tube but she says she is feeling well with minimal incisional pain. No BM. Objective Vital Signs - Last 8 Hours Temp Pulse Resp BP Pulse Ox 09/02/17 09:00 95 18 163/82 98 09/02/17 04:54 97.7 F 89 16 156/80 97 Intake and Output 09/01/17 09/02/17 09/02/17 23:59 07:59 15:59 Intake Total 100 / 100 100 / 100 0 / 0 Output Total 600 / 600 450 / 450 0 / 0 Balance -500 / -500 -350 / -350 0 / 0 Intake: IV Fluids 100 / 100 100 / 100 0.9 % Sodium Chloride 1,000 ML 0 / 0 @ 100 mls/hr IVC .Q10H [facility]KAL Rx#: [id number] Zosyn 3.375 GM In Dextrose 5% ( 100 / 100 100 / 100 Minibag+) 100 ML 100 ML @ 25 mls/hr IVPB Q8H MIKAL Rx#: [id number] Oral 0 / 0 0 / 0 Output: Urine 0 / 0 Catheter 600 / 600 450 / 450 Other: Meal npo Weight 82.1 kg Blood Glucose* 196 234 309 Patient Weight 09/02/17 23:59 Weight 82.1 kg - Additional Exam Constitutional: Alert, in no acute distress, well nourished, well developed. Head: Normocephalic, atraumatic, normal contour and symmetric, no masses, lesions or scars Heart: Normal, regular rate and rhythm, no murmurs Lungs: Clear to auscultation, no wheezes, rales, or rhonchi Abdomen: mideline vertical incision well approximated and healingl without signs of infection, mild diffuse tenderness, Soft, nondistended, and no masses palpable, no guarding or rigidity. Extremities: No clubbing, cyanosis, or edema, radial pulse +2/4, capillary refill <2sec. Skin: Skin warm and dry, no lesions, no rashes, no jaundice Neurologic: Cranial nerves II through XII grossly intact, no focal deficits, strength within normal limits in all extremities Psych: Cooperative with exam, good eye contact, cognitive function intact, judgment good insight good, speech clear, thought process logical, and goal directed - Labs 09/02/17 05:17 09/02/17 05:17 Diabetes panel 09/01/17 09/02/17 Range/Units 11:53 05:17 Sodium 142 141 (136-145) mEq/L Potassium 3.5 3.5 (3.5-4.5) mEq/L Chloride 104 104 (98-109) mEq/L Carbon Dioxide 30 H 28 (19-29) mEq/L BUN 27 H 27 H (7-20) mg/dL Creatinine 0.81 0.82 (0.57-1.11) mg/dL Glucose 180 H 218 H (70-99) mg/dL Calcium 8.6 8.3 L (8.6-10.8) mg/dL Calcium panel 09/01/17 09/02/17 Range/Units 11:53 05:17 Calcium 8.6 8.3 L (8.6-10.8) mg/dL Phosphorus 1.4 L 2.5 D (2.3-4.7) mg/dL Pituitary panel 09/01/17 09/02/17 Range/Units 11:53 05:17 Sodium 142 141 (136-145) mEq/L Potassium 3.5 3.5 (3.5-4.5) mEq/L Chloride 104 104 (98-109) mEq/L Carbon Dioxide 30 H 28 (19-29) mEq/L BUN 27 H 27 H (7-20) mg/dL Creatinine 0.81 0.82 (0.57-1.11) mg/dL Glucose 180 H 218 H (70-99) mg/dL Calcium 8.6 8.3 L (8.6-10.8) mg/dL Adrenal panel 09/01/17 09/02/17 Range/Units 11:53 05:17 Sodium 142 141 (136-145) mEq/L Potassium 3.5 3.5 (3.5-4.5) mEq/L Chloride 104 104 (98-109) mEq/L Carbon Dioxide 30 H 28 (19-29) mEq/L BUN 27 H 27 H (7-20) mg/dL Creatinine 0.81 0.82 (0.57-1.11) mg/dL Glucose 180 H 218 H (70-99) mg/dL Calcium 8.6 8.3 L (8.6-10.8) mg/dL - VTE Documentation of Mechanical Device: Intermittent pneumatic compression device Consult Discharge Plan - Plan Referrals: Jose Miguel Sanabria MD [Primary Care Provider] - Jack Arzate MD [Partnered Physician] - <Darrion Ortiz - Last Filed: 09/02/17 13:25> Date of Encounter: 09/02/17 - Assessment and Plan (1) Small bowel obstruction Current Visit: Yes Status: Inactive (2) DVT prophylaxis Current Visit: Yes Status: Acute (3) Diabetes mellitus Current Visit: Yes Status: Acute Qualifiers: Diabetes mellitus type: type 2 Diabetes mellitus complication status: with other specified complication Diabetes mellitus senior living insulin use: without senior living use Qualified Code(s): E11.69 - Type 2 diabetes mellitus with other specified complication (4) HTN (hypertension) Current Visit: Yes Status: Acute Qualifiers: Hypertension type: essential hypertension Qualified Code(s): I10 - Essential (primary) hypertension (5) Left ovarian cyst Current Visit: Yes Status: Acute Objective Vital Signs - Last 8 Hours Temp Pulse Resp BP Pulse Ox 09/02/17 11:27 98.4 F 09/02/17 11:02 98 18 162/78 95 09/02/17 09:00 95 18 163/82 98 Intake and Output 09/01/17 09/02/17 09/02/17 23:59 07:59 15:59 Intake Total 100 / 100 100 / 100 0 / 0 Output Total 600 / 600 450 / 450 0 / 0 Balance -500 / -500 -350 / -350 0 / 0 Intake: IV Fluids 100 / 100 100 / 100 0.9 % Sodium Chloride 1,000 ML 0 / 0 @ 100 mls/hr IVC .Q10H MIKAL Rx#: [id number] Zosyn 3.375 GM In Dextrose 5% ( 100 / 100 100 / 100 Minibag+) 100 ML 100 ML @ 25 mls/hr IVPB Q8H MIKAL Rx#: [id number] Oral 0 / 0 0 / 0 Output: Urine 0 / 0 Catheter 600 / 600 450 / 450 Other: Meal npo Stool Size Small Stool Consistency loose liquid Stool Characteristics Normal for Patient Stool Color Brown # Bowel Movements 1 Weight 82.1 kg Blood Glucose* 196 234 252 Patient Weight 09/02/17 23:59 Weight 82.1 kg - Labs 09/02/17 05:17 09/02/17 05:17 Diabetes panel 09/02/17 Range/Units 05:17 Sodium 141 (136-145) mEq/L Potassium 3.5 (3.5-4.5) mEq/L Chloride 104 (98-109) mEq/L Carbon Dioxide 28 (19-29) mEq/L BUN 27 H (7-20) mg/dL Creatinine 0.82 (0.57-1.11) mg/dL Glucose 218 H (70-99) mg/dL Calcium 8.3 L (8.6-10.8) mg/dL Calcium panel 09/02/17 Range/Units 05:17 Calcium 8.3 L (8.6-10.8) mg/dL Phosphorus 2.5 D (2.3-4.7) mg/dL Pituitary panel 09/02/17 Range/Units 05:17 Sodium 141 (136-145) mEq/L Potassium 3.5 (3.5-4.5) mEq/L Chloride 104 (98-109) mEq/L Carbon Dioxide 28 (19-29) mEq/L BUN 27 H (7-20) mg/dL Creatinine 0.82 (0.57-1.11) mg/dL Glucose 218 H (70-99) mg/dL Calcium 8.3 L (8.6-10.8) mg/dL Adrenal panel 09/02/17 Range/Units 05:17 Sodium 141 (136-145) mEq/L Potassium 3.5 (3.5-4.5) mEq/L Chloride 104 (98-109) mEq/L Carbon Dioxide 28 (19-29) mEq/L BUN 27 H (7-20) mg/dL Creatinine 0.82 (0.57-1.11) mg/dL Glucose 218 H (70-99) mg/dL Calcium 8.3 L (8.6-10.8) mg/dL - Attending Attestation I have personally seen and examined the patient. I have reviewed pertinent labs , imaging, progress notes, including this one. I agree with the above assessment and plan and wish to include the following... 77F POD #4 s/p ex lap, mayran 2/2 sbo now with lower NG outputs (~900cc/day), mild electrolyte abnormalities, leukocytosis, and hyperglycemia; abdomen is non peritoneal and soft; patient does report small episodes of flatus, but not ' normal' per patient; will cont NG tube and await return of bowel function, replete electrolytes; patient also made known that she has a history of CLL, which lisa explains her WBC; will d/c abx and antifungal and cont to monitor as needed; add levemir as well as insulin to TPN; will monitor sugars over next 24 hours; may need insulin gtt; okay to d/c lawrence, okay to d/c replacement fluids; cap total IV rate at 125
[2017-09-02] MEDS: Insulin DETEMIR 100 UNIT/ML X5UNITS SQ SCH ×2 (12:55→21:18)
[2017-09-02] MEDS ORDERED: Fluconazole 100 MG/50 ML 100 MG/50 ML BAG IVPB SCH (14:00)
[2017-09-02] MEDS: *HR* HYDROmorphone 20 MG/20 ML PCA IVC PRN (15:56)
[2017-09-02] MEDS ORDERED: Clinimix E 5%-15% SOLUTION 2,000 ML with MVI, adult with vitamin K 10 ML, Insulin Hum... IVC SCH (17:00)
[2017-09-02] MEDS: 0.9 % Sodium Chloride 1,000 ML IVC SCH (19:02)
[2017-09-02] MEDS: Fluconazole 100 MG/50 ML 100 MG/50 ML BAG IVPB SCH (19:02)
[2017-09-03] MEDS: Metoclopramide 10 MG/2 ML VIAL IVP SCH ×3 (01:13→12:07)
[2017-09-03] MEDS: Insulin LISPRO 300 UNITS/3 ML VIAL SQ SCH ×6 (01:15→21:33)
[2017-09-03 04:22] LABS: Basophils % 0.2 %; Hemoglobin 7.6 g/dL (11.5-15.4); Immature Granulocytes % 2.9 % (0-4); Mean Corpuscular Volume 93.5 fL (83.0-100.0); Nucleated Red Blood Cells 0.1 /100 WBC (0)
[2017-09-03 04:23] LABS: Basophils # 0.1 K/mcL (0.0-0.2); Eosinophils # 0.3 K/mcL (0.0-0.6); Eosinophils % 1.1 %; Hematocrit 24.3 % (35.3-44.9); Lymphocytes # 15.2 K/mcL (0.6-4.6); Lymphocytes % 54.7 %; Mean Corpuscular HGB Conc 31.3 g/dL (31.6-35.5); Mean Corpuscular Hemoglobin 29.2 pg (28.0-33.3); Mean Platelet Volume 10.8 fL (9.4-12.4); Monocytes # 1.5 K/mcL (0.0-1.3); Monocytes % 5.4 %; Neutrophils # 9.9 K/mcL (1.6-8.9); Platelet Count 170 K/mcL (140-400); Red Cell Distribution Width 14.6 % (11.5-14.5); Segmented Neutrophils % 35.7 %
[2017-09-03 04:44] LABS: Alanine Aminotransferase 70 Units/L (0-55); Albumin/Globulin Ratio 0.7 (1.1-2.2); Alkaline Phosphatase 154 Units/L (38-126); Aspartate Amino Transferase 51 Units/L (5-34); BUN/Creatinine Ratio 34 (6-26); Bilirubin,Total 0.4 mg/dL (0.2-1.2); Blood Urea Nitrogen 25 mg/dL (7-20); Carbon Dioxide 27 mEq/L (19-29); Chloride 105 mEq/L (98-109); Glucose 133 mg/dL (70-99); Magnesium 1.7 mg/dL (1.6-2.6); Osmolality,Calculated 294 (280-300); Phosphorous 2.6 mg/dL (2.3-4.7); Potassium 3.4 mEq/L (3.5-4.5); Sodium 139 mEq/L (136-145); Triglycerides 211 mg/dL (< 150); eGFR For African Americans > 60 (> 60); eGFR For Non-African Americans > 60 (> 60)
[2017-09-03 04:49] LABS: Platelet Estimate Normal (Normal)
[2017-09-03] MEDS: *HR* Heparin 5,000 UNIT/ML VIAL SQ SCH ×3 (06:10→21:34)
[2017-09-03] MEDS ORDERED: Magnesium Sulfate 2 GM in D5% in Water 100 ML IVPB ONE (08:01)
--- NOTE | 2017-09-03 09:00 | General Surgery Progress Note ---
<Vikki Wadsworth - Last Filed: 09/03/17 08:55> Date of Encounter: 09/03/17 Time of Encounter: 07:50 - Assessment and Plan (1) Small bowel obstruction Current Visit: Yes Status: Inactive s/p exploratory laparotomy by Dr. Ortiz 08/29/17. Patient denies N/V without NG tube. Lawrence has been d/c and she is voiding without problems. Will advance diet today. Continue to ambulate to promote bowel stimulation. Plan: - Diet: clears for breakfast and fulls for lunch if tolerates breakfast well, possible regular diet for dinner if continues to do well - continue full TPN running today, half tomorrow if diet progresses as planned - NS @ 100ml/hr , can d/c after no N/V after lunch - Necessary to ambulate with assistance TID - Will decrease insulin tomorrow with half TPN, as half TPN tomorrow - replace magnesium 2mg and phos K 22meq, repeat labs tomorrow - (2) Electrolyte abnormality Current Visit: Yes Status: Acute Mg= 1.7, phos= 2.6, K= 3.4. Replaced with 2gm. Phos K 22meq replaced. Will repeat labs tomorrow. (3) Left ovarian cyst Current Visit: Yes Status: Acute US showed a cystic nodule is seen in the left adnexae measuring 7.4 x 5.7 x 6.3 cm suspicious for cystic ovarian neoplasm, given the patient's age, until proven otherwise. OBGYN consulted. Ca-125= 35. Patient denies desiring any invasive treatment at this time but agrees to f/u with COSMETICS SUPERVISOR outpatient for further discussion and evaluation. (4) HTN (hypertension) Current Visit: Yes Status: Acute cont with lopressor with current parameters Qualifiers: Hypertension type: essential hypertension Qualified Code(s): I10 - Essential (primary) hypertension (5) Diabetes mellitus Current Visit: Yes Status: Acute ISS - high dose slidind scale, goal of 150s for glucose. Levemir 10 units BID. Insulin also in TPN. Glucose better controlled this morning. Qualifiers: Diabetes mellitus type: type 2 Diabetes mellitus complication status: with other specified complication Diabetes mellitus retirement insulin use: without longitudinal float operator use Qualified Code(s): E11.69 - Type 2 diabetes mellitus with other specified complication (6) DVT prophylaxis Current Visit: Yes Status: Acute SQ heparin continue Subjective Narrative: Ms. Bello is a 77 y/o female with a pmh of CLL and multiple abdominal surgeries presented with SBO and is s/p exploratory laparotomy (08/29/17 Dr. Ortiz). Today, she is glad to have the NG tube and lawrence cath out. No problems voiding. She is having minimal abdominal pain. + flatus. -BM. Objective Vital Signs - Last 8 Hours Temp Pulse Resp BP Pulse Ox 09/03/17 07:20 98.1 F 97 16 147/77 97 09/03/17 03:19 98.2 F 116 18 171/91 96 Intake and Output 09/02/17 09/03/17 09/03/17 23:59 07:59 15:59 Intake Total 0 / 0 0 / 0 Output Total 0 / 0 400 / 400 Balance 0 / 0 -400 / -400 Intake: Oral 0 / 0 0 / 0 Output: Urine 0 / 0 400 / 400 Other: # Voids 1 Blood Glucose* 128 141 - Additional Exam Constitutional: Alert, in no acute distress, well nourished, well developed. Head: Normocephalic, atraumatic, normal contour and symmetric, no masses, lesions or scars Heart: Normal, regular rate and rhythm, no murmurs Lungs: Clear to auscultation, no wheezes, rales, or rhonchi Abdomen: mideline vertical incision well approximated and healingl without signs of infection, mild diffuse tenderness, Soft, nondistended, and no masses palpable, no guarding or rigidity. Extremities: No clubbing, cyanosis, or edema, radial pulse +2/4, capillary refill <2sec. Skin: Skin warm and dry, no lesions, no rashes, no jaundice Neurologic: Cranial nerves II through XII grossly intact, no focal deficits, strength within normal limits in all extremities Psych: Cooperative with exam, good eye contact, cognitive function intact, judgment good insight good, speech clear, thought process logical, and goal directed - Labs 09/03/17 04:02 09/03/17 04:02 Diabetes panel 09/03/17 Range/Units 04:02 Sodium 139 (136-145) mEq/L Potassium 3.4 L (3.5-4.5) mEq/L Chloride 105 (98-109) mEq/L Carbon Dioxide 27 (19-29) mEq/L BUN 25 H (7-20) mg/dL Creatinine 0.74 (0.57-1.11) mg/dL Glucose 133 H (70-99) mg/dL Calcium 8.0 L (8.6-10.8) mg/dL AST 51 H (5-34) Units/L ALT 70 H (0-55) Units/L Alkaline Phosphatase 154 H (38-126) Units/L Albumin 2.0 L (3.5-5.0) g/dL Triglycerides 211 H (< 150) mg/dL Calcium panel 09/03/17 Range/Units 04:02 Calcium 8.0 L (8.6-10.8) mg/dL Phosphorus 2.6 (2.3-4.7) mg/dL Albumin 2.0 L (3.5-5.0) g/dL Pituitary panel 09/03/17 Range/Units 04:02 Sodium 139 (136-145) mEq/L Potassium 3.4 L (3.5-4.5) mEq/L Chloride 105 (98-109) mEq/L Carbon Dioxide 27 (19-29) mEq/L BUN 25 H (7-20) mg/dL Creatinine 0.74 (0.57-1.11) mg/dL Glucose 133 H (70-99) mg/dL Calcium 8.0 L (8.6-10.8) mg/dL Adrenal panel 09/03/17 Range/Units 04:02 Sodium 139 (136-145) mEq/L Potassium 3.4 L (3.5-4.5) mEq/L Chloride 105 (98-109) mEq/L Carbon Dioxide 27 (19-29) mEq/L BUN 25 H (7-20) mg/dL Creatinine 0.74 (0.57-1.11) mg/dL Glucose 133 H (70-99) mg/dL Calcium 8.0 L (8.6-10.8) mg/dL Total Bilirubin 0.4 (0.2-1.2) mg/dL AST 51 H (5-34) Units/L ALT 70 H (0-55) Units/L Alkaline Phosphatase 154 H (38-126) Units/L Albumin 2.0 L (3.5-5.0) g/dL - VTE Documentation of Mechanical Device: Graduated compression elastic hosiery Consult Discharge Plan - Plan Referrals: Jose Miguel Sanabria MD [Primary Care Provider] - Jack Arzate MD [Partnered Physician] - <Darrion Ortiz - Last Filed: 09/03/17 09:22> Date of Encounter: 09/03/17 - Assessment and Plan (1) Small bowel obstruction Current Visit: Yes Status: Inactive (2) DVT prophylaxis Current Visit: Yes Status: Acute (3) Diabetes mellitus Current Visit: Yes Status: Acute Qualifiers: Diabetes mellitus type: type 2 Diabetes mellitus complication status: with other specified complication Diabetes mellitus retirement insulin use: without longitudinal float operator use Qualified Code(s): E11.69 - Type 2 diabetes mellitus with other specified complication (4) HTN (hypertension) Current Visit: Yes Status: Acute Qualifiers: Hypertension type: essential hypertension Qualified Code(s): I10 - Essential (primary) hypertension (5) Left ovarian cyst Current Visit: Yes Status: Acute Objective Vital Signs - Last 8 Hours Temp Pulse Resp BP Pulse Ox 09/03/17 07:20 98.1 F 97 16 147/77 97 09/03/17 03:19 98.2 F 116 18 171/91 96 Intake and Output 09/02/17 09/03/17 09/03/17 23:59 07:59 15:59 Intake Total 0 / 0 0 / 0 360 / 360 Output Total 0 / 0 400 / 400 Balance 0 / 0 -400 / -400 360 / 360 Intake: Oral 0 / 0 0 / 0 360 / 360 Output: Urine 0 / 0 400 / 400 Other: Meal Clears Breakfast # Voids 1 Blood Glucose* 128 141 - Labs 09/03/17 04:02 09/03/17 04:02 Diabetes panel 09/03/17 Range/Units 04:02 Sodium 139 (136-145) mEq/L Potassium 3.4 L (3.5-4.5) mEq/L Chloride 105 (98-109) mEq/L Carbon Dioxide 27 (19-29) mEq/L BUN 25 H (7-20) mg/dL Creatinine 0.74 (0.57-1.11) mg/dL Glucose 133 H (70-99) mg/dL Calcium 8.0 L (8.6-10.8) mg/dL AST 51 H (5-34) Units/L ALT 70 H (0-55) Units/L Alkaline Phosphatase 154 H (38-126) Units/L Albumin 2.0 L (3.5-5.0) g/dL Triglycerides 211 H (< 150) mg/dL Calcium panel 09/03/17 Range/Units 04:02 Calcium 8.0 L (8.6-10.8) mg/dL Phosphorus 2.6 (2.3-4.7) mg/dL Albumin 2.0 L (3.5-5.0) g/dL Pituitary panel 09/03/17 Range/Units 04:02 Sodium 139 (136-145) mEq/L Potassium 3.4 L (3.5-4.5) mEq/L Chloride 105 (98-109) mEq/L Carbon Dioxide 27 (19-29) mEq/L BUN 25 H (7-20) mg/dL Creatinine 0.74 (0.57-1.11) mg/dL Glucose 133 H (70-99) mg/dL Calcium 8.0 L (8.6-10.8) mg/dL Adrenal panel 09/03/17 Range/Units 04:02 Sodium 139 (136-145) mEq/L Potassium 3.4 L (3.5-4.5) mEq/L Chloride 105 (98-109) mEq/L Carbon Dioxide 27 (19-29) mEq/L BUN 25 H (7-20) mg/dL Creatinine 0.74 (0.57-1.11) mg/dL Glucose 133 H (70-99) mg/dL Calcium 8.0 L (8.6-10.8) mg/dL Total Bilirubin 0.4 (0.2-1.2) mg/dL AST 51 H (5-34) Units/L ALT 70 H (0-55) Units/L Alkaline Phosphatase 154 H (38-126) Units/L Albumin 2.0 L (3.5-5.0) g/dL - Attending Attestation Personally saw and examined patient; Reviewed all pertinent data and progress notes. Agree with the above plan and include the following 77F s/p ex lap 2/2 sbo, currently with return of bowel function, no NG tube; tolerating sips of clears; voiding appropriately - CLD for breakfast, FLD for lunch; cont with TPN today - will reassess reg diet for dinner - will plan for half strength tpn in AM - replete lytes - cont TABLE TENDER; will likely d/c in AM ambulate as tolerated
[2017-09-03] MEDS: Insulin DETEMIR 100 UNIT/ML X5UNITS SQ SCH ×2 (09:32→21:51)
[2017-09-03] MEDS: Fluconazole 100 MG/50 ML 100 MG/50 ML BAG IVPB SCH (15:08)
[2017-09-03] MEDS ORDERED: Clinimix E 5%-15% SOLUTION 2,000 ML with MVI, adult with vitamin K 10 ML, Magnesium S... IVC SCH ×2 (17:00)
[2017-09-04] MEDS: Metoclopramide 10 MG/2 ML VIAL IVP SCH ×4 (00:30→11:21)
[2017-09-04 05:15] LABS: BUN/Creatinine Ratio 31 (6-26); Blood Urea Nitrogen 19 mg/dL (7-20); Carbon Dioxide 22 mEq/L (19-29); Chloride 109 mEq/L (98-109); Glucose 149 mg/dL (70-99); Magnesium 1.3 mg/dL (1.6-2.6); Osmolality,Calculated 287 (280-300); Phosphorous 2.6 mg/dL (2.3-4.7); Potassium 3.4 mEq/L (3.5-4.5); Sodium 136 mEq/L (136-145); eGFR For African Americans > 60 (> 60); eGFR For Non-African Americans > 60 (> 60)
[2017-09-04 05:17] LABS: Calcium 6.6 mg/dL (8.6-10.8)
[2017-09-04] MEDS: *HR* Heparin 5,000 UNIT/ML VIAL SQ SCH (05:40)
[2017-09-04] MEDS: Insulin LISPRO 300 UNITS/3 ML VIAL SQ SCH ×4 (05:42→12:41)
[2017-09-04] MEDS: 0.9 % Sodium Chloride 1,000 ML IVC SCH (07:28)
[2017-09-04] MEDS: Insulin DETEMIR 100 UNIT/ML X5UNITS SQ SCH (08:31)
--- NOTE | 2017-09-04 09:27 | Discharge Summary ---
<Vikki Wadsworth - Last Filed: 09/04/17 11:32> Date of Encounter: 09/04/17 Time of Encounter: 08:30 - Discharge Diagnosis (1) Small bowel obstruction Priority: Primary Status: Inactive (2) Electrolyte abnormality Priority: Secondary Status: Acute (3) Left ovarian cyst Priority: Secondary Status: Acute (4) HTN (hypertension) Priority: Secondary Status: Acute Qualifiers: Hypertension type: essential hypertension Qualified Code(s): I10 - Essential (primary) hypertension (5) Diabetes mellitus Priority: Secondary Status: Acute Qualifiers: Diabetes mellitus type: type 2 Diabetes mellitus complication status: with other specified complication Diabetes mellitus termite treater helper insulin use: without senior living use Qualified Code(s): E11.69 - Type 2 diabetes mellitus with other specified complication (6) DVT prophylaxis Priority: Secondary Status: Acute (7) CLL (chronic lymphocytic leukemia) Priority: Secondary Status: Acute Comments: past medical history of CLL - Discharge Medications Prescriptions: Docusate [Colace] 100 mg PO BID #30 capsule Oxycodone HCl/Acetaminophen [Percocet 5-325 mg Tablet] 1 each PO Q4-6H PRN #30 tablet PRN Reason: Pain Home Medications: Acetaminophen [Tylenol Arthritis] 500 mg PO QID PRN 02/03/17 [History] Allopurinol [Zyloprim] 300 mg PO DAILY 02/03/17 [History] Atorvastatin [Lipitor] 10 mg PO HS 02/03/17 [History] Curtis Cit/Mag/D3/Zn/Body Cleaner/Nikhil/Bor [Citracal-Vit D + Magnesium Tab] 1 each PO DAILY 02/03/17 [History] [place]-3/Dha/Epa/Fish Oil [Fish Oil 1,000 mg Softgel] 1,200 mg PO DAILY 02/03/17 [History] metFORMIN [Glucophage] 500 mg PO BIDWM 02/03/17 [History] Amlodipine Besylate/Benazepril [Lotrel 5-40 mg Capsule] 1 cap PO DAILY 08/24/17 [History] Aspirin [Lo-Dose Aspirin EC] 81 mg PO DAILY 08/24/17 [History] Vit A/C/E AC/Znox/Cupric Oxide [Eye Vitamin-Minerals Tablet] 1 each PO DAILY 06/03 [History] Docusate [Colace] 100 mg PO BID #30 capsule 09/04/17 [Rx] Oxycodone HCl/Acetaminophen [Percocet 5-325 mg Tablet] 1 each PO Q4-6H PRN #30 tablet 09/04/17 [Rx] Allergies/Adverse Reactions: 3 Allergy/AdvReac Type Severity Reaction Status Date / Time No Known Allergies Allergy Verified 02/03/17 08:33 General Surgery Exam Initial Vital Signs Temp Pulse Resp BP Pulse Ox 97.9 F 109 20 109/57 93 08/24/17 10:11 08/24/17 10:11 08/24/17 10:11 08/24/17 10:11 08/24/17 10:11 - Additional Findings Constitutional: Alert, in no acute distress, well nourished, well developed. Head: Normocephalic, atraumatic, normal contour and symmetric, no masses, lesions or scars Heart: Normal, regular rate and rhythm, no murmurs Lungs: Clear to auscultation, no wheezes, rales, or rhonchi Abdomen: mideline vertical incision well approximated and healing without signs of infection, mild diffuse tenderness, Soft, nondistended, and no masses palpable, no guarding or rigidity. Extremities: No clubbing, cyanosis, or edema, radial pulse +2/4, capillary refill <2sec. Skin: Skin warm and dry, no lesions, no rashes, no jaundice Neurologic: Cranial nerves II through XII grossly intact, no focal deficits, strength within normal limits in all extremities Psych: Cooperative with exam, good eye contact, cognitive function intact, judgment good insight good, speech clear, thought process logical, and goal directed Date of admission: 08/24/17 09:01 Primary care physician: Jose Miguel Sanabria MD Consults: 08/28/17 09:48 consult to hoop punch and coiler operator helper [Consult to Nutrition] [CONS] Routine Comment: Total fluid rate 125ml/hour (MIV + TPN) Consulting Provider: NUTRITION Reason for Dietary Consult: TPN Start and Manage 08/28/17 11:27 Consult to Invasive Line Access Team [CONS] Routine Reason for Consult: Picc Line Insertion Line Type: PICC PICC line indications: Parental nutrition Time Notified: 09:50 Call Completed: Yes 08/28/17 13:02 Consult to Cardiology [CONS] Routine Comment: Dr. Watts Consulting Provider: Cardiology Elke Reason for Consult: Preoperative risk stratification Time Notified: 09:00 Call Completed: Yes 09/03/17 13:48 Consult to Physical Therapy [CONS] Routine Comment: Evaluate, develop and implement POC Reason for Consult: discharge planning OT [Consult to Occupational Therapy] [CONS] Routine Comment: Evaluate, develop and implement POC Reason for Consult: discharge planning Discharging clinician: Darrion Ortiz Anticipated date of discharge: 09/04/17 - Patient Status Disposition: Home, Self-Care Condition: Good Functional capacity at discharge: uses cane/walker Overall status at discharge: patient is progressing back to baseline - Discharge Instructions Instructions: Bowel Obstruction (DC) Follow Up With: Darrion Ortiz MD [Non-Partnered Physician] - 09/11/17 3:45 pm Jose Miguel Sanabria MD [Primary Care Provider] - Jack Arzate MD [Partnered Physician] - 09/11/17 10:35 am Additional Instructions: 1. May shower, No tub/bath for 2 weeks 2. Wash incision with soap and water. Pat dry daily. 3. No lifting, pushing, pulling more than 15lbs for 6 weeks 4. No driving until off narcotics/percocet for 24 hrs and safety able to react in the car. 5. May climb stairs. 6. Follow-up appointment scheduled in 1-2 weeks with surgery. 7. Follow-up with your primary care physician in [address] Arzate in 1-2 weeks. - Diet and Activity Activity: as per physical therapy, increase activity as tolerated Diet: diabetic diet - Hospital Course Hospital course: Ms. Bello is a 77 year old female with a pmh of CLL and multiple abdominal surgeries presented with abdominal pain and constipation for 3 days and was found to have a SBO, s/p exploratory laparotomy (08/29/17 Dr. Ortiz). CT of abdomen showed chronic partial obstruction. Patient failed conservative management with NG tube and bowel rest. Cardiac clearance was obtained with a negative nuclear cardiac stress test and patient underwent an exploratory laparotomy. Adhesions were lysed to free bowel obstruction and no resection was need. Patient tolerated proceedure well without any complications. Patient was placed on TPN for nutrition management and NG tube was continued after surgery but d/c with decrease in NG output. Patient progressed well and was having frequent bowel movements and tolerating a regular diet before discharge. Patient was given an appointment for f/u with Dr. Ortiz in 1 week and instructed to f/u with her primary care physician in 1 week. Patient was discharged with Percocet 5-325 for pain and Colace to be continued while on narcotics. Of note, CT noted left ovarian cyst measuring 8.2cm. US showed a cystic nodule is seen in the left adnexae measuring 7.4 x 5.7 x 6.3 cm suspicious for cystic ovarian neoplasm, given the patient's age, until proven otherwise. OBGYN consulted. Ca-125= 35. Cyst was seen during surgery and was noted as soft. Patient denies desiring any invasive treatment at this time but agrees to f/u with ELECTRONICS TEACHER outpatient for further discussion and evaluation. Patient instructed to schedule a f/u appointment with Dr. Arzate with the next couple of weeks. - Time Spent with Patient Total time spent providing and/or coordinating discharge services: Labs on day of discharge: Labs from last 24 hours 09/04/17 09/04/17 09/04/17 08:09 04:40 03:38 Sodium 136 Potassium 3.4 L Chloride 109 Carbon Dioxide 22 BUN 19 Creatinine 0.62 Est GFR ( Amer) > 60 Est GFR (Non-Af Amer) > 60 BUN/Creatinine Ratio 31 H Glucose 149 H POC Glucose 198 H 143 H Calculated Osmolality 287 Calcium 6.6 L D Phosphorus 2.6 Magnesium 1.3 L 09/03/17 09/03/17 09/03/17 23:50 20:23 16:12 Sodium Potassium Chloride Carbon Dioxide BUN Creatinine Est GFR ( Amer) Est GFR (Non-Af Amer) BUN/Creatinine Ratio Glucose POC Glucose 128 H 172 H 126 H Calculated Osmolality Calcium Phosphorus Magnesium 09/03/17 09/03/17 09/02/17 11:27 09:29 20:29 Sodium Potassium Chloride Carbon Dioxide BUN Creatinine Est GFR ( Amer) Est GFR (Non-Af Amer) BUN/Creatinine Ratio Glucose POC Glucose 171 H 206 H 128 H Calculated Osmolality Calcium Phosphorus Magnesium Preliminary micro results at discharge 09/01/17 13:25 Blood Culture - Preliminary Peripheral Central Cath, Picc No growth. 09/01/17 13:20 Blood Culture - Preliminary Peripheral Venipuncture No growth. - Impressions ITS Impressions Pelvis Ultrasound 08/25/17 08:14 IMPRESSION: Large cystic nodule in the left adnexa, suspicious for cystic ovarian neoplasm, given the patient's age, until proven otherwise Normal right ovary. D/ / Robert Prado MD / Robert Prado MD Interpreting Provider: Robert Prado MD Abdomen X-Ray 08/25/17 10:10 IMPRESSION: Status post placement of enteric tube. D/ / Luh Layton Cha, MD / Luh Layton Cha, MD Interpreting Provider: Luh Layton Cha, MD Chest X-Ray 08/25/17 10:10 IMPRESSION: Enteric tube in place as above. Minimal left basilar atelectasis. D/ / Luh Layton Cha, MD / Luh Layton Cha, MD Interpreting Provider: Luh Layton Cha, MD Chest X-Ray 08/28/17 09:22 IMPRESSION: Nasogastric tube in good position. No evidence of acute cardiopulmonary disease. D/ / Philippe Gandara MD / Philippe Gandara MD Interpreting Provider: Philippe Gandara MD Echocardiogram 08/28/17 09:37 Impressions: Normal LV systolic function, LVEF 65%. Mild LV basal septal hypertrophy. No evidence of LVOT obstruction. Mild left ventricular diastolic dysfunction. Normal right ventricular size and function. Mild mitral regurgitation. Mild pulmonic regurgitation. No evidence of pulmonary hypertension. Left Ventricular Wall Motion: Rest Echo Findings All wall segments showed normal motion. Findings: Study Quality * Technically adequate exam. ECG Findings * Normal sinus rhythm. Left Ventricle * Normal LV systolic function, LVEF 65%. * Normal LV chamber size. * Mild LV basal septal hypertrophy. No evidence of LVOT obstruction. * Mild left ventricular diastolic dysfunction. Right Ventricle * Normal right ventricular size and function. Left Atrium * Normal left atrial size. Right Atrium * Normal right atrial size. Aorta * Normally sized aortic root. Pericardium * There is no pericardial effusion present. IVC * The IVC is not dilated. Aortic Valve * Aortic valve not well visualized. * No aortic stenosis. * No aortic regurgitation. Mitral Valve * Mild-moderate mitral annular calcification * No mitral stenosis. * Mild mitral regurgitation. Tricuspid Valve * Normal tricuspid valve structure. * No tricuspid stenosis. * Trace tricuspid regurgitation. * No evidence of pulmonary hypertension. Pulmonic Valve * Pulmonic valve not well visualized. * No pulmonic stenosis. * Mild pulmonic regurgitation. Chest/Abdomen X-ray 09/01/17 12:43 IMPRESSION: Gastric tube in the stomach. Normal bowel-gas pattern D/ / Haim Lo MD / Haim Lo MD Interpreting Provider: Haim Lo MD <Darrion Ortiz - Last Filed: 09/04/17 13:15> Date of Encounter: 09/04/17 - Discharge Diagnosis (1) Small bowel obstruction Status: Inactive (2) DVT prophylaxis Status: Acute (3) Diabetes mellitus Status: Acute Qualifiers: Diabetes mellitus type: type 2 Diabetes mellitus complication status: with other specified complication Diabetes mellitus senior living insulin use: without termite treater helper use Qualified Code(s): E11.69 - Type 2 diabetes mellitus with other specified complication (4) HTN (hypertension) Status: Acute Qualifiers: Hypertension type: essential hypertension Qualified Code(s): I10 - Essential (primary) hypertension (5) Left ovarian cyst Status: Acute General Surgery Exam Initial Vital Signs Temp Pulse Resp BP Pulse Ox 97.9 F 109 20 109/57 93 08/24/17 10:11 08/24/17 10:11 08/24/17 10:11 08/24/17 10:11 08/24/17 10:11 Date of admission: 08/24/17 09:01 Primary care physician: Jose Miguel Sanabria MD Consults: 08/28/17 09:48 consult to hoop punch and coiler operator helper [Consult to Nutrition] [CONS] Routine Comment: Total fluid rate 125ml/hour (MIV + TPN) Consulting Provider: NUTRITION Reason for Dietary Consult: TPN Start and Manage 08/28/17 11:27 Consult to Invasive Line Access Team [CONS] Routine Reason for Consult: Picc Line Insertion Line Type: PICC PICC line indications: Parental nutrition Time Notified: 09:50 Call Completed: Yes 08/28/17 13:02 Consult to Cardiology [CONS] Routine Comment: Dr. Watts Consulting Provider: Cardiology lEke Reason for Consult: Preoperative risk stratification Time Notified: 09:00 Call Completed: Yes 09/03/17 13:48 Consult to Physical Therapy [CONS] Routine Comment: Evaluate, develop and implement POC Reason for Consult: discharge planning OT [Consult to Occupational Therapy] [CONS] Routine Comment: Evaluate, develop and implement POC Reason for Consult: discharge planning - Hospital Course Hospital course: Ms. Bello is a 77 year old female - Time Spent with Patient Total time spent providing and/or coordinating discharge services: Labs on day of discharge: Labs from last 24 hours 09/04/17 09/04/17 09/04/17 12:40 08:09 04:40 Sodium 136 Potassium 3.4 L Chloride 109 Carbon Dioxide 22 BUN 19 Creatinine 0.62 Est GFR ( Amer) > 60 Est GFR (Non-Af Amer) > 60 BUN/Creatinine Ratio 31 H Glucose 149 H POC Glucose 109 H 198 H Calculated Osmolality 287 Calcium 6.6 L D Phosphorus 2.6 Magnesium 1.3 L 09/04/17 09/03/17 09/03/17 03:38 23:50 20:23 Sodium Potassium Chloride Carbon Dioxide BUN Creatinine Est GFR ( Amer) Est GFR (Non-Af Amer) BUN/Creatinine Ratio Glucose POC Glucose 143 H 128 H 172 H Calculated Osmolality Calcium Phosphorus Magnesium 09/03/17 09/03/17 09/02/17 16:12 09:29 20:29 Sodium Potassium Chloride Carbon Dioxide BUN Creatinine Est GFR ( Amer) Est GFR (Non-Af Amer) BUN/Creatinine Ratio Glucose POC Glucose 126 H 206 H 128 H Calculated Osmolality Calcium Phosphorus Magnesium Preliminary micro results at discharge 09/01/17 13:25 Blood Culture - Preliminary Peripheral Central Cath, Picc No growth. 09/01/17 13:20 Blood Culture - Preliminary Peripheral Venipuncture No growth. - Impressions ITS Impressions Pelvis Ultrasound 08/25/17 08:14 IMPRESSION: Large cystic nodule in the left adnexa, suspicious for cystic ovarian neoplasm, given the patient's age, until proven otherwise Normal right ovary. D/ / Robert Prado MD / Robert Prado MD Interpreting Provider: Robert Prado MD Abdomen X-Ray 08/25/17 10:10 IMPRESSION: Status post placement of enteric tube. D/ / Luh Layton Cha, MD / Luh Layton Cha, MD Interpreting Provider: Luh Layton Cha, MD Chest X-Ray 08/25/17 10:10 IMPRESSION: Enteric tube in place as above. Minimal left basilar atelectasis. D/ / Luh Layton Cha, MD / Luh Layton Cha, MD Interpreting Provider: Luh Layton Cha, MD Chest X-Ray 08/28/17 09:22 IMPRESSION: Nasogastric tube in good position. No evidence of acute cardiopulmonary disease. D/ / Philippe Gandara MD / Philippe Gandara MD Interpreting Provider: Philippe Gandara MD Echocardiogram 08/28/17 09:37 Impressions: Normal LV systolic function, LVEF 65%. Mild LV basal septal hypertrophy. No evidence of LVOT obstruction. Mild left ventricular diastolic dysfunction. Normal right ventricular size and function. Mild mitral regurgitation. Mild pulmonic regurgitation. No evidence of pulmonary hypertension. Left Ventricular Wall Motion: Rest Echo Findings All wall segments showed normal motion. Findings: Study Quality * Technically adequate exam. ECG Findings * Normal sinus rhythm. Left Ventricle * Normal LV systolic function, LVEF 65%. * Normal LV chamber size. * Mild LV basal septal hypertrophy. No evidence of LVOT obstruction. * Mild left ventricular diastolic dysfunction. Right Ventricle * Normal right ventricular size and function. Left Atrium * Normal left atrial size. Right Atrium * Normal right atrial size. Aorta * Normally sized aortic root. Pericardium * There is no pericardial effusion present. IVC * The IVC is not dilated. Aortic Valve * Aortic valve not well visualized. * No aortic stenosis. * No aortic regurgitation. Mitral Valve * Mild-moderate mitral annular calcification * No mitral stenosis. * Mild mitral regurgitation. Tricuspid Valve * Normal tricuspid valve structure. * No tricuspid stenosis. * Trace tricuspid regurgitation. * No evidence of pulmonary hypertension. Pulmonic Valve * Pulmonic valve not well visualized. * No pulmonic stenosis. * Mild pulmonic regurgitation. Chest/Abdomen X-ray 09/01/17 12:43 IMPRESSION: Gastric tube in the stomach. Normal bowel-gas pattern D/ / Haim Lo MD / Haim Lo MD Interpreting Provider: Haim Lo MD - Attending Attestation I have personally seen and examined the patient. I have reviewed pertinent labs , imaging, progress notes, including this one. I agree with the above assessment and plan and wish to include the following... 77F admitted with SBO that failed non operative management. POD #5/6 she had return of bowel function. NG was discontinued, she was started on a diet, which she tolerated. She subsequently met discharge criteria. She is scheduled for clinic visit post operatively.
[2017-09-04] MEDS ORDERED: Magnesium Sulfate 4 GM in D5% in Water 100 ML IVPB ONE (10:36)
[2017-09-04] MEDS: Magnesium Sulfate 2 GM in D5% in Water 100 ML IVPB SCH ×2 (11:18→12:20)
--- NOTE | 2017-09-04 13:36 | General Surgery Progress Note ---
Date of Encounter: 09/04/17 Time of Encounter: 07:32 - Assessment and Plan (1) Small bowel obstruction Current Visit: Yes Status: Inactive 77F with prior abdominal surgeries who presents with sbo POD #1 s/p ex lap, extensive MARIA DE JESUS advance to reg diet d/c tpn, SLIV if tolerates lunch, then okay for d/c (2) DVT prophylaxis Current Visit: Yes Status: Acute cont with SQH - cont with SCDs (3) Diabetes mellitus Current Visit: Yes Status: Acute restart metformin; follow up with PCP Qualifiers: Diabetes mellitus type: type 2 Diabetes mellitus complication status: with other specified complication Diabetes mellitus termite inspector insulin use: without termite inspector use Qualified Code(s): E11.69 - Type 2 diabetes mellitus with other specified complication (4) HTN (hypertension) Current Visit: Yes Status: Acute cont with lopressor with current parameters Qualifiers: Hypertension type: essential hypertension Qualified Code(s): I10 - Essential (primary) hypertension (5) Left ovarian cyst Current Visit: Yes Status: Acute follow up with [facility] as outpt Subjective Patient reports: feels better, still having pain, pain is less, tolerating liquids well, flatus, bowel movement, afebrile Objective Vital Signs - Last 8 Hours Temp Pulse Resp BP Pulse Ox 09/04/17 08:37 95 09/04/17 08:01 98.3 F 102 15 150/73 95 Intake and Output 09/03/17 09/04/17 09/04/17 23:59 07:59 15:59 Intake Total 150 / 150 0 / 0 224 / 224 Output Total 225 / 225 200 / 200 Balance -75 / -75 -200 / -200 224 / 224 Intake: IV Fluids 104 / 104 Magnesium Sulfate 2 GM In 104 / 104 Dextrose 5% 100 ML @ 96.296 mls /hr IVPB Q1H MIKAL Rx#:[id number] Oral 150 / 150 0 / 0 120 / 120 Output: Urine 225 / 225 Stool 200 / 200 Other: Meal Dinner Percent of Meal Consumed 10% Stool Size Moderate Stool Consistency loose Stool Color Brown Green # Voids 1 # Bowel Movements 1 1 Weight 90.356 kg Blood Glucose* 128 143 109 Patient Weight 09/04/17 23:59 Weight 90.356 kg - General physical appearance well developed, well nourished, no distress - Respiratory normal expansion, normal respiratory effort - Cardiovascular Cardiovascular exam: Present: RRR - Abdomen Abdomen: Present: soft, non tender Hernia: none - Incision Incision: Present: clean and dry, intact - Neurologic CN 2-12 grossly intact - Psychiatric oriented to time, oriented to person - Labs 09/03/17 04:02 09/04/17 04:40 Diabetes panel 09/04/17 Range/Units 04:40 Sodium 136 (136-145) mEq/L Potassium 3.4 L (3.5-4.5) mEq/L Chloride 109 (98-109) mEq/L Carbon Dioxide 22 (19-29) mEq/L BUN 19 (7-20) mg/dL Creatinine 0.62 (0.57-1.11) mg/dL Glucose 149 H (70-99) mg/dL Calcium 6.6 L D (8.6-10.8) mg/dL Calcium panel 09/04/17 Range/Units 04:40 Calcium 6.6 L D (8.6-10.8) mg/dL Phosphorus 2.6 (2.3-4.7) mg/dL Pituitary panel 09/04/17 Range/Units 04:40 Sodium 136 (136-145) mEq/L Potassium 3.4 L (3.5-4.5) mEq/L Chloride 109 (98-109) mEq/L Carbon Dioxide 22 (19-29) mEq/L BUN 19 (7-20) mg/dL Creatinine 0.62 (0.57-1.11) mg/dL Glucose 149 H (70-99) mg/dL Calcium 6.6 L D (8.6-10.8) mg/dL Adrenal panel 09/04/17 Range/Units 04:40 Sodium 136 (136-145) mEq/L Potassium 3.4 L (3.5-4.5) mEq/L Chloride 109 (98-109) mEq/L Carbon Dioxide 22 (19-29) mEq/L BUN 19 (7-20) mg/dL Creatinine 0.62 (0.57-1.11) mg/dL Glucose 149 H (70-99) mg/dL Calcium 6.6 L D (8.6-10.8) mg/dL - VTE Documentation of Mechanical Device: Intermittent pneumatic compression device Consult Discharge Plan - Plan Instructions: Bowel Obstruction (DC) Additional Instructions: 1. May shower, No tub/bath for 2 weeks 2. Wash incision with soap and water. Pat dry daily. 3. No lifting, pushing, pulling more than 15lbs for 6 weeks 4. No driving until off narcotics/percocet for 24 hrs and safety able to react in the car. 5. May climb stairs. 6. Follow-up appointment scheduled in 1-2 weeks with surgery. 7. Follow-up with your primary care physician in [address] Arzate in 1-2 weeks. Referrals: Darrion Ortiz MD [Non-Partnered Physician] - 09/11/17 3:45 pm Jose Miguel Sanabria MD [Primary Care Provider] - Jack Arzate MD [Partnered Physician] - 09/11/17 10:35 am Prescriptions: Docusate [Colace] 100 mg PO BID #30 capsule Oxycodone HCl/Acetaminophen [Percocet 5-325 mg Tablet] 1 each PO Q4-6H PRN #30 tablet PRN Reason: Pain
[2017-09-04 14:22] VITALS: BP 138/77
== END 2017-09-04 14:46 | disposition home or self-care (01) | DRG 330 ==
LOC: 3ANU 09:01
PROVIDERS: ADMIT Surgery; ATTEND Surgery